=== PATIENT | male | born 1965 | race African-American/Black ===

== ENCOUNTER 2023-12-30 11:24 | Outpatient (AMB) | payer BC, SELFPAY ==
--- NOTE | 2023-12-30 11:33 | HO.NEPHOV_ITS ---
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 He has history of aortic dissection needing EVAR( July 2022). He also had stroke with if NANETTE a chest pain resolved. He has longstanding hypertension and is known to have hypertensive cardiomyopathy. He has not been on any NANETTE inhibitor or ARB for unknown reasons. He had a CT angiogram which also picked up 3.7 cm low- density lesion in the lower pole of left kidney. He has not seen urologist. He is known to have proteinuria over a gram but never had a renal biopsy .His blood pressure has been suboptimally controlled. He denies taking any drugs, excessive nonsteroidal anti-inflammatories or ajug-xdr-[id number] medications. He maintains good hydration. He does not have any chest pain, shortness of breath, proximal nocturnal dyspnea, orthopnea, worsening pedal edema, hematuria or orthostatic symptoms. His last serum creatinine was 2.59. 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 Anemia Expressive aphasia CVA (cerebral vascular accident) Aortic dissection Hyperaldosteronism Adrenal hyperplasia Surgical History Hx of repair of dissecting thoracic aortic aneurysm, Eyal type B Family History Mother Type 2 diabetes mellitus Hypertension Social History (Updated 12/30/23 @ 11:38 by Glendy Garcias MA) Alcohol intake: never Patient Tobacco Use Status: Never used Tobacco Review of Systems Const All systems reviewed & are unremarkable except as noted in HPI and below Physical Exam Vital Signs: Last Vital Signs Pulse 74 06/25/24 11:34 BP 148/90 H 12/30/23 11:34 Pulse Ox 98 12/30/23 11:34 Oxygen Delivery Method Room Air 12/30/23 11:34 BMI result Body Mass Index 25.5 Const General: comfortable and no acute distress Orientation/consciousness: patient oriented x3 HEENT Head: Yes normocephalic Mouth: Normal oral and palatal mucosa present Eyes EOM: EOMs intact bilaterally Neck Neck: Yes supple Resp Auscultation: clear to auscultation bilaterally Cardio Jugular venous distension: no JVD Rate: regular rate GI Palpation (GI): Soft to palpation Auscultation: normal bowel sounds General: Yes no CVA tenderness Back/Spine/Pelvis Back: no CVA tenderness Skin General skin exam: no rashes or lesions noted Neuro General: patient oriented x3 and moves all extremities Results Reviewed Nephrology Results: No Data to Display Assessment & Plan Assessment & Plan (1) CKD stage 4 secondary to hypertension: Code(s): I12.9 - Hypertensive chronic kidney disease with stage 1 through stage 4 chronic kidney disease, or unspecified chronic kidney disease; N18.4 - Chronic kidney disease, stage 4 (severe) Category: Medical (2) Hypertension: Code(s): I10 - Essential (primary) hypertension Category: Medical Qualifiers: Hypertension type: renovascular hypertension Qualified Code(s): I15.0 - Renovascular hypertension (3) Proteinuria: Code(s): R80.9 - Proteinuria, unspecified Category: Medical Qualifiers: Proteinuria type: other Qualified Code(s): R80.8 - Other proteinuria (4) Renal cyst: Code(s): N28.1 - Cyst of kidney, acquired Category: Medical Plan Jesi has CKD likely from vascular disease. He had aortic dissection as well as stroke. His blood pressure is not very well controlled. I increased his carvedilol to 37.5 mg twice daily. He is known to have proteinuria over a gram. I ordered workup including imaging studies. He likely will need renal biopsy. I encouraged him to avoid nonsteroidal anti-inflammatories and maintain good hydration. Time spent reviewing or his data, previous notes and consultations, patient encounter and documentation included 61 minutes. Answered all questions. Follow-up appointment given. Orders: Orders Calcium Today I10 - Essential (primary) hypertension, I12.9 - Hypertensive chronic kidney disease with stage 1 through stage 4 chronic kidney disease, or unspecified chronic kidney disease, N18.4 - Chronic kidney disease, stage 4 (severe) Complete Blood Count Auto Diff Today I10 - Essential (primary) hypertension, I12.9 - Hypertensive chronic kidney disease with stage 1 through stage 4 chronic kidney disease, or unspecified chronic kidney disease, N18.4 - Chronic kidney disease, stage 4 (severe) Prothrombin Time INR Today I10 - Essential (primary) hypertension, I12.9 - Hypertensive chronic kidney disease with stage 1 through stage 4 chronic kidney disease, or unspecified chronic kidney disease, N18.4 - Chronic kidney disease, stage 4 (severe) Immunofixation, Random Urine Today I10 - Essential (primary) hypertension, I12.9 - Hypertensive chronic kidney disease with stage 1 through stage 4 chronic kidney disease, or unspecified chronic kidney disease, N18.4 - Chronic kidney disease, stage 4 (severe) Vitamin D 25-OH Total Today I10 - Essential (primary) hypertension, I12.9 - Hypertensive chronic kidney disease with stage 1 through stage 4 chronic kidney disease, or unspecified chronic kidney disease, N18.4 - Chronic kidney disease, stage 4 (severe) US renal BI Today I10 - Essential (primary) hypertension, I12.9 - Hypertensive chronic kidney disease with stage 1 through stage 4 chronic kidney disease, or unspecified chronic kidney disease, N18.4 - Chronic kidney disease, stage 4 (severe) Creatinine Today I10 - Essential (primary) hypertension, I12.9 - Hypertensive chronic kidney disease with stage 1 through stage 4 chronic kidney disease, or unspecified chronic kidney disease, N18.4 - Chronic kidney disease, stage 4 (severe) Blood Urea Nitrogen Today I10 - Essential (primary) hypertension, I12.9 - Hypertensive chronic kidney disease with stage 1 through stage 4 chronic kidney disease, or unspecified chronic kidney disease, N18.4 - Chronic kidney disease, stage 4 (severe) Electrolytes Today I10 - Essential (primary) hypertension, I12.9 - Hypertensive chronic kidney disease with stage 1 through stage 4 chronic kidney disease, or unspecified chronic kidney disease, N18.4 - Chronic kidney disease, stage 4 (severe) Immunofixation Pnl, Serum Today I10 - Essential (primary) hypertension, I12.9 - Hypertensive chronic kidney disease with stage 1 through stage 4 chronic kidney disease, or unspecified chronic kidney disease, N18.4 - Chronic kidney disease, stage 4 (severe) Parathyroid Hormone Intact Today I10 - Essential (primary) hypertension, I12.9 - Hypertensive chronic kidney disease with stage 1 through stage 4 chronic kidney disease, or unspecified chronic kidney disease, N18.4 - Chronic kidney disease, stage 4 (severe) US renal doppler Today I10 - Essential (primary) hypertension, I12.9 - Hypertensive chronic kidney disease with stage 1 through stage 4 chronic kidney disease, or unspecified chronic kidney disease, N18.4 - Chronic kidney disease, stage 4 (severe) Hemoglobin A1c Today I10 - Essential (primary) hypertension, I12.9 - Hypertensive chronic kidney disease with stage 1 through stage 4 chronic kidney disease, or unspecified chronic kidney disease, N18.4 - Chronic kidney disease, stage 4 (severe) Coding Level of Care Code New Pt Level 5 (57684) Diagnoses CKD stage 4 secondary to hypertension I12.9; N18.4 Renovascular hypertension I15.0 Hypertension type: renovascular hypertension Other proteinuria R80.8 Proteinuria type: other Renal cyst N28.1
[2023-12-30 11:34] VITALS: BP 148/90; PULSE 74; O2SAT 98; BMI 25.5
== END 2023-12-30 12:09 | disposition home or self-care (01) ==
PROVIDERS: PCP Internal Medicine; Referring Provider Internal Medicine; Visit Provider Internal Medicine Nephrology
DX: I12.9 Hypertensive chronic kidney disease with stage 1 through stage 4 chronic kidney disease, or unspecified chronic kidney disease (principal); N18.4 Chronic kidney disease, stage 4 (severe); I15.0 Renovascular hypertension; R80.8 Other proteinuria; N28.1 Cyst of kidney, acquired
CPT/HCPCS: 99205; 99417

== ENCOUNTER → 2023-12-30 11:24 | Outpatient (BNVA) | payer BC, SELFPAY | PROVIDERS: PCP Internal Medicine; Referring Provider Internal Medicine; Visit Provider Internal Medicine Nephrology ==

== ENCOUNTER 2024-01-29 11:00 | Outpatient (AMB) | payer BC, SELFPAY ==
--- NOTE | 2024-01-29 11:17 | HO.NEPHOV_ITS ---
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 He has history of aortic dissection needing EVAR( July 2022)( Dr Carr). He also had stroke with if NANETTE a chest pain resolved. He has longstanding hypertension and is known to have hypertensive cardiomyopathy. He has not been on any NANETTE inhibitor or ARB for unknown reasons. He had a CT angiogram which also picked up 3.7 cm low-density lesion in the lower pole of left kidney. He has not seen urologist. He is known to have proteinuria over a gram but never had a renal biopsy .His blood pressure has been optimally controlled. He denies taking any drugs, excessive nonsteroidal anti-inflammatories or [id number]-[id number] medications. He maintains good hydration. He does not have any chest pain, shortness of breath, proximal nocturnal dyspnea, orthopnea, worsening pedal edema, hematuria or orthostatic symptoms. 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 Anemia Expressive aphasia CVA (cerebral vascular accident) Aortic dissection Hyperaldosteronism Adrenal hyperplasia Surgical History Hx of repair of dissecting thoracic aortic aneurysm, Eyal type B Family History Mother Type 2 diabetes mellitus Hypertension Social History Alcohol intake: never Patient Tobacco Use Status: Never used Tobacco Physical Exam Vital Signs: Last Vital Signs Pulse 74 01/29/24 11:19 BP 110/80 01/29/24 11:19 Pulse Ox 99 01/29/24 11:19 Oxygen Delivery Method Room Air 01/29/24 11:19 BMI result Body Mass Index 25.3 Results Reviewed Nephrology Results: No Data to Display Assessment & Plan Assessment & Plan (1) CKD stage 4 secondary to hypertension: Code(s): I12.9 - Hypertensive chronic kidney disease with stage 1 through stage 4 chronic kidney disease, or unspecified chronic kidney disease; N18.4 - Chronic kidney disease, stage 4 (severe) Category: Medical (2) Hypertension: Code(s): I10 - Essential (primary) hypertension Category: Medical Qualifiers: Hypertension type: renovascular hypertension Qualified Code(s): I15.0 - Renovascular hypertension (3) Proteinuria: Code(s): R80.9 - Proteinuria, unspecified Category: Medical Qualifiers: Proteinuria type: other Qualified Code(s): R80.8 - Other proteinuria (4) Renal cyst: Code(s): N28.1 - Cyst of kidney, acquired Category: Medical Plan Amrit has CKD likely from vascular disease. He had aortic dissection as well as stroke. His blood pressure is very well controlled on current medications . He is known to have proteinuria over a gram. He needs F/U renal USS. He may renal biopsy. I encouraged him to avoid nonsteroidal anti-inflammatories and maintain good hydration. Answered all questions. Follow-up appointment given Orders: Orders Blood Urea Nitrogen 2 Months I12.9 - Hypertensive chronic kidney disease with stage 1 through stage 4 chronic kidney disease, or unspecified chronic kidney disease, I15.0 - Renovascular hypertension, N18.4 - Chronic kidney disease, stage 4 (severe) Electrolytes 2 Months I12.9 - Hypertensive chronic kidney disease with stage 1 through stage 4 chronic kidney disease, or unspecified chronic kidney disease, I15.0 - Renovascular hypertension, N18.4 - Chronic kidney disease, stage 4 (severe) Creatinine 2 Months I12.9 - Hypertensive chronic kidney disease with stage 1 through stage 4 chronic kidney disease, or unspecified chronic kidney disease, I15.0 - Renovascular hypertension, N18.4 - Chronic kidney disease, stage 4 (severe) Coding Level of Care Code Est Pt Level 4 (53707) Diagnoses CKD stage 4 secondary to hypertension I12.9; N18.4 Renovascular hypertension I15.0 Hypertension type: renovascular hypertension Other proteinuria R80.8 Proteinuria type: other Renal cyst N28.1
[2024-01-29 11:19] VITALS: BP 110/80; PULSE 74; O2SAT 99; BMI 25.3
== END 2024-01-29 11:39 | disposition home or self-care (01) ==
PROVIDERS: PCP Internal Medicine; Visit Provider Internal Medicine Nephrology
DX: I12.9 Hypertensive chronic kidney disease with stage 1 through stage 4 chronic kidney disease, or unspecified chronic kidney disease (principal); N18.4 Chronic kidney disease, stage 4 (severe); R80.8 Other proteinuria; N28.1 Cyst of kidney, acquired
CPT/HCPCS: 99214

== ENCOUNTER → 2024-01-29 11:00 | Outpatient (BNVA) | payer BC, SELFPAY | PROVIDERS: PCP Internal Medicine; Visit Provider Internal Medicine Nephrology ==

== ENCOUNTER 2024-01-29 11:02 | Outpatient (REF) | payer BC, SELFPAY ==
[2024-01-29 17:32] LABS: MANUAL DIFF FLAG NO
[2024-01-29 17:34] LABS: Basophils Absolute Auto 0.1 X10*3/uL (0.0-0.2); Eosinophils Absolute Auto 0.2 X10*3/uL (0.0-0.4); Eosinophils Percent Auto 3.4 % (0-4); Hematocrit 36.8 % (42.0-52.0); Imm Gran Abs Auto 0.02 X10*3/uL (0.00-0.03); Imm Gran Pct Auto 0.3 % (0.0-0.4); Lymphocytes Absolute Auto 1.9 X10*3/uL (1.2-4.9); Lymphocytes Percent Auto 28.4 % (20-40); Mean Corpuscular HGB Conc 32.6 g/dl (31.0-36.0); Mean Corpuscular Hemoglobin 28.6 pg (27.0-33.0); Mean Corpuscular Volume 87.6 fL (80.0-98.0); Mean Platelet Volume 9.8 fL (9.4-12.4); Monocytes Absolute Auto 0.4 X10*3/uL (0.1-1.2); Monocytes Percent Auto 5.6 % (2-11); Neutrophils Absolute Auto 4.2 x10*3/uL (2.0-8.3); Neutrophils Percent Auto 61.3 % (45-73); Platelet Count 269 X10*3/uL (160-400); Red Cell Distribution Width 13.4 % (11.0-16.0); White Blood Count 6.8 X10*3/uL (4.8-10.8)
[2024-01-29 17:38] LABS: Prothrombin Time 11.8 SEC (11.1-13.3)
[2024-01-29 17:57] LABS: Anion Gap 14 (12-20); Blood Urea Nitrogen 32 mg/dL (9-16); Calcium 9.5 mg/dL (8.4-10.2); Carbon Dioxide 26 mmol/L (22-29); Chloride 106 mmol/L (96-108); Estimated Glomerular Filt Rate 19; Potassium 5.1 mmol/L (3.3-5.1); Sodium 141 mmol/L (135-145)
[2024-01-29 18:16] LABS: Vitamin D 25-OH Total 34.6 ng/mL (>30)
[2024-01-30 05:35] LABS: Parathyroid Hormone Intact 193.4 pg/mL (8.7-77.1)
[2024-01-30 07:47] LABS: Estimated Average Glucose 120 mg/dL; Hemoglobin A1c % 5.8 % (<6.0)
[2024-02-04 13:33] LABS: IgA 360 mg/dL (47-310); IgG 1437 mg/dL (600-1640); IgM 52 mg/dL (50-300)
== END 2024-01-29 11:03 | disposition home or self-care (01) ==
LOC: HO.HKASLDS 11:02
PROVIDERS: Visit Provider Internal Medicine Nephrology
DX: I12.9 Hypertensive chronic kidney disease with stage 1 through stage 4 chronic kidney disease, or unspecified chronic kidney disease (principal); N18.4 Chronic kidney disease, stage 4 (severe); I10 Essential (primary) hypertension; Z13.1 Encounter for screening for diabetes mellitus
CPT/HCPCS: 80051; 82306; 82310; 82565; 82784; 83036; 83970; 84520; 85025; 85610; 86334; 86335

== ENCOUNTER 2024-03-23 10:30 | Outpatient (REF) | payer BC, SELFPAY ==
[2024-03-23 17:51] LABS: Anion Gap 13 (12-20); Blood Urea Nitrogen 32 mg/dL (9-16); Carbon Dioxide 29 mmol/L (22-29); Chloride 104 mmol/L (96-108); Estimated Glomerular Filt Rate 17; Sodium 141 mmol/L (135-145)
== END 2024-03-23 10:31 | disposition home or self-care (01) ==
LOC: HO.HKASLDS 10:30
PROVIDERS: Visit Provider Internal Medicine Nephrology
DX: I12.9 Hypertensive chronic kidney disease with stage 1 through stage 4 chronic kidney disease, or unspecified chronic kidney disease (principal); N18.4 Chronic kidney disease, stage 4 (severe)
CPT/HCPCS: 36415; 80051; 82565; 84520

== ENCOUNTER 2024-05-06 10:56 | Outpatient (AMB) | payer BC, SELFPAY ==
[2024-05-06 11:01] VITALS: BP 130/84; PULSE 76; O2SAT 98; BMI 26.1
--- NOTE | 2024-05-06 11:01 | HO.NEPHOV_ITS ---
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 He has history of aortic dissection needing EVAR( July 2022)( Dr Carr). He also had stroke. He has longstanding hypertension and is known to have hypertensive cardiomyopathy. He has not been on any NANETTE inhibitor or ARB for unknown reasons. He had a CT angiogram which also picked up 3.7 cm low-density lesion in the lower pole of left kidney. He has not seen urologist. He is known to have proteinuria over a gram but never had a renal biopsy .His blood pressure has been optimally controlled. He denies taking any drugs, excessive nonsteroidal anti- inflammatories or myvp-jih-wzmsuxp medications. He maintains good hydration. He does not have any chest pain, shortness of breath, proximal nocturnal dyspnea, orthopnea, worsening pedal edema, hematuria or orthostatic symptoms. 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 Anemia Expressive aphasia CVA (cerebral vascular accident) Aortic dissection Hyperaldosteronism Adrenal hyperplasia Surgical History Hx of repair of dissecting thoracic aortic aneurysm, Accident type B Family History Mother Type 2 diabetes mellitus Hypertension Social History Alcohol intake: never Patient Tobacco Use Status: Never used Tobacco Review of Systems Const All systems reviewed & are unremarkable except as noted in HPI and below Physical Exam Vital Signs: Last Vital Signs Pulse 76 05/06/24 11:01 BP 130/84 05/06/24 11:01 Pulse Ox 98 05/06/24 11:01 Oxygen Delivery Method Room Air 05/06/24 11:01 BMI result Body Mass Index 26.1 Const General: comfortable and no acute distress Orientation/consciousness: patient oriented x3 HEENT Head: Yes normocephalic Mouth: Normal oral and palatal mucosa present Eyes EOM: EOMs intact bilaterally Neck Neck: Yes supple Resp Auscultation: clear to auscultation bilaterally Cardio Jugular venous distension: no JVD Rate: regular rate GI Palpation (GI): Soft to palpation Auscultation: normal bowel sounds General: Yes no CVA tenderness Back/Spine/Pelvis Back: no CVA tenderness Skin General skin exam: no rashes or lesions noted Neuro General: patient oriented x3 and moves all extremities Extrem General: Yes no pedal edema Results Reviewed Nephrology Results: Hgb 12.0 g/dl (14.0-18.0) L 01/29/24 WBC 6.8 X10*3/uL (4.8-10.8) 01/29/24 Plt Count 269 X10*3/uL (160-400) 01/29/24 Sodium 141 mmol/L (135-145) 03/23/24 Potassium 5.0 mmol/L (3.3-5.1) 03/23/24 Chloride 104 mmol/L (96-108) 03/23/24 Carbon Dioxide 29 mmol/L (22-29) 03/23/24 BUN 32 mg/dL (9-16) H 03/23/24 Creatinine 3.64 mg/dL (0.5-1.4) H 03/23/24 Calcium 9.5 mg/dL (8.4-10.2) 01/29/24 PTH Intact 193.4 pg/mL (8.7-77.1) H 01/29/24 Assessment & Plan Assessment & Plan (1) CKD stage 4 secondary to hypertension: Code(s): I12.9 - Hypertensive chronic kidney disease with stage 1 through stage 4 chronic kidney disease, or unspecified chronic kidney disease; N18.4 - Chronic kidney disease, stage 4 (severe) Category: Medical (2) Hypertension: Code(s): I10 - Essential (primary) hypertension Category: Medical Qualifiers: Hypertension type: renovascular hypertension Qualified Code(s): I15.0 - Renovascular hypertension (3) Renal cyst: Code(s): N28.1 - Cyst of kidney, acquired Category: Medical Plan Amrit has CKD likely from vascular disease. He had aortic dissection as well as stroke. His blood pressure is very well controlled on current medications . He is known to have proteinuria over a gram. He needs F/U renal USS. He may renal biopsy. I encouraged him to avoid nonsteroidal anti-inflammatories and maintain good hydration. I plan to initiate him on SGLT2 i at the next visit. Answered all questions. Follow-up appointment given Orders: Orders Creatinine 1 Week I12.9 - Hypertensive chronic kidney disease with stage 1 through stage 4 chronic kidney disease, or unspecified chronic kidney disease, N18.4 - Chronic kidney disease, stage 4 (severe) Blood Urea Nitrogen 3 Months I12.9 - Hypertensive chronic kidney disease with stage 1 through stage 4 chronic kidney disease, or unspecified chronic kidney disease, I15.0 - Renovascular hypertension, N18.4 - Chronic kidney disease, stage 4 (severe) Vitamin D 25-OH Total 3 Months I12.9 - Hypertensive chronic kidney disease with stage 1 through stage 4 chronic kidney disease, or unspecified chronic kidney disease, I15.0 - Renovascular hypertension, N18.4 - Chronic kidney disease, stage 4 (severe) Blood Urea Nitrogen 1 Week I12.9 - Hypertensive chronic kidney disease with stage 1 through stage 4 chronic kidney disease, or unspecified chronic kidney disease, N18.4 - Chronic kidney disease, stage 4 (severe) Electrolytes 1 Week I12.9 - Hypertensive chronic kidney disease with stage 1 through stage 4 chronic kidney disease, or unspecified chronic kidney disease, N18.4 - Chronic kidney disease, stage 4 (severe) Creatinine 3 Months I12.9 - Hypertensive chronic kidney disease with stage 1 through stage 4 chronic kidney disease, or unspecified chronic kidney disease, I15.0 - Renovascular hypertension, N18.4 - Chronic kidney disease, stage 4 (severe) Electrolytes 3 Months I12.9 - Hypertensive chronic kidney disease with stage 1 through stage 4 chronic kidney disease, or unspecified chronic kidney disease, I15.0 - Renovascular hypertension, N18.4 - Chronic kidney disease, stage 4 (severe) Coding Level of Care Code Est Pt Level 4 (93065) Diagnoses CKD stage 4 secondary to hypertension I12.9; N18.4 Renovascular hypertension I15.0 Hypertension type: renovascular hypertension Renal cyst N28.1
== END 2024-05-06 11:27 | disposition home or self-care (01) ==
LOC: HO.HKAS 10:56
PROVIDERS: PCP Internal Medicine; Visit Provider Internal Medicine Nephrology
DX: I12.9 Hypertensive chronic kidney disease with stage 1 through stage 4 chronic kidney disease, or unspecified chronic kidney disease (principal); N18.4 Chronic kidney disease, stage 4 (severe); N28.1 Cyst of kidney, acquired
CPT/HCPCS: 99214

== ENCOUNTER → 2024-05-06 10:56 | Outpatient (BNVA) | payer BC, SELFPAY | PROVIDERS: PCP Internal Medicine; Visit Provider Internal Medicine Nephrology ==

== ENCOUNTER 2024-09-16 10:28 | Outpatient (AMB) | payer BC, SELFPAY ==
--- NOTE | 2024-09-16 10:39 | HO.NEPHOV_ITS ---
Vital Signs 09/16/24 10:40 Height 5 ft 8 in Weight 177 lb 8 oz BMI 27.0 BP 130/70 Blood Pressure Location Rt brachial Position Sitting Pulse 73 Pulse Source Pulse Oximeter Pulse Oximetry (%) 99 Oxygen Delivery Method Room Air Intake Visit Reasons: 3 mo f/u-LVM Panelboard Tank Pumper Required: No Accompanied by: Self / Same As Patient Allergies amlodipine [From Lotrel] Allergy (Verified 09/16/24 10:40) Numbness benazepril [From Lotrel] Allergy (Verified 09/16/24 10:40) Numbness HPI Comments Details: 58-year-old gentleman was seen in follow up for management of his chronic kidney disease and hypertension. He has history of aortic dissection needing EVAR( July 2022)( Dr Carr). He also had stroke. He has longstanding hypertension and is known to have hypertensive cardiomyopathy. He has not been on any NANETTE inhibitor or ARB for unknown reasons. He had a CT angiogram which also picked up 3.7 cm low-density lesion in the lower pole of left kidney. He has not seen urologist. He is known to have proteinuria over a gram but never had a renal biopsy .His blood pressure has been optimally controlled. He denies taking any drugs, excessive nonsteroidal anti-inflammatories or hnge-gda-lqmiejo medications. He maintains good hydration. He does not have any chest pain, shortness of breath, proximal nocturnal dyspnea, orthopnea, worsening pedal edema, hematuria or orthostatic symptoms. 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 Anemia Expressive aphasia CVA (cerebral vascular accident) Aortic dissection Hyperaldosteronism Adrenal hyperplasia Surgical History Hx of repair of dissecting thoracic aortic aneurysm, Sullivan type B Family History Mother Type 2 diabetes mellitus Hypertension Social History Alcohol intake: never Patient Tobacco Use Status: Never used Tobacco Review of Systems Const All systems reviewed & are unremarkable except as noted in HPI and below Physical Exam Vital Signs: Last Vital Signs Pulse 73 09/16/24 10:40 BP 130/70 09/16/24 10:40 Pulse Ox 99 09/16/24 10:40 Oxygen Delivery Method Room Air 09/16/24 10:40 BMI result Body Mass Index 27.0 Const General: comfortable and no acute distress Orientation/consciousness: patient oriented x3 HEENT Head: Yes normocephalic Mouth: Normal oral and palatal mucosa present Eyes EOM: EOMs intact bilaterally Neck Neck: Yes supple Resp Auscultation: clear to auscultation bilaterally Cardio Jugular venous distension: no JVD Rate: regular rate GI Palpation (GI): Soft to palpation Auscultation: normal bowel sounds Skin General skin exam: no rashes or lesions noted Neuro General: patient oriented x3 and moves all extremities Extrem General: Yes no pedal edema Results Reviewed Nephrology Results: Hgb 12.0 g/dl (14.0-18.0) L 01/29/24 WBC 6.8 X10*3/uL (4.8-10.8) 01/29/24 Plt Count 269 X10*3/uL (160-400) 01/29/24 Sodium 141 mmol/L (135-145) 03/23/24 Potassium 5.0 mmol/L (3.3-5.1) 03/23/24 Chloride 104 mmol/L (96-108) 03/23/24 Carbon Dioxide 29 mmol/L (22-29) 03/23/24 BUN 32 mg/dL (9-16) H 03/23/24 Creatinine 3.64 mg/dL (0.5-1.4) H 03/23/24 Calcium 9.5 mg/dL (8.4-10.2) 01/29/24 PTH Intact 193.4 pg/mL (8.7-77.1) H 01/29/24 Assessment & Plan Assessment & Plan (1) Renovascular hypertension: Code(s): I15.0 - Renovascular hypertension Category: Medical (2) Renal cyst: Code(s): N28.1 - Cyst of kidney, acquired Category: Medical (3) Proteinuria: Code(s): R80.9 - Proteinuria, unspecified Category: Medical Qualifiers: Proteinuria type: other Qualified Code(s): R80.8 - Other proteinuria (4) CKD stage 4 secondary to hypertension: Code(s): I12.9 - Hypertensive chronic kidney disease with stage 1 through stage 4 chronic kidney disease, or unspecified chronic kidney disease; N18.4 - Chronic kidney disease, stage 4 (severe) Category: Medical (5) Hypertension: Code(s): I10 - Essential (primary) hypertension Category: Medical Qualifiers: Hypertension type: renovascular hypertension Qualified Code(s): I15.0 - Renovascular hypertension (6) Secondary hyperparathyroidism (of renal origin): Code(s): N25.81 - Secondary hyperparathyroidism of renal origin Category: Medical (7) Vitamin D deficiency: Code(s): E55.9 - Vitamin D deficiency, unspecified Category: Medical Plan Amrit has CKD likely from vascular disease. He had aortic dissection as well as stroke. His blood pressure is very well controlled on current medications . He is known to have proteinuria over a gram. I started him on Vitamin D 1000 Units a day. I encouraged him to avoid nonsteroidal anti-inflammatories and maintain good hydration. He is a great candidate for SGLT2 i . Answered all questions. Follow-up appointment given Orders: Orders Creatinine 3 Months E55.9 - Vitamin D deficiency, unspecified, I12.9 - Hypertensive chronic kidney disease with stage 1 through stage 4 chronic kidney disease, or unspecified chronic kidney disease, I15.0 - Renovascular hypertension, N18.4 - Chronic kidney disease, stage 4 (severe), N25.81 - Secondary hyperparathyroidism of renal origin, N28.1 - Cyst of kidney, acquired, R80.8 - Other proteinuria Blood Urea Nitrogen 3 Months E55.9 - Vitamin D deficiency, unspecified, I12.9 - Hypertensive chronic kidney disease with stage 1 through stage 4 chronic kidney disease, or unspecified chronic kidney disease, I15.0 - Renovascular hypertension, N18.4 - Chronic kidney disease, stage 4 (severe), N25.81 - Secondary hyperparathyroidism of renal origin, N28.1 - Cyst of kidney, acquired, R80.8 - Other proteinuria Electrolytes 3 Months E55.9 - Vitamin D deficiency, unspecified, I12.9 - Hypertensive chronic kidney disease with stage 1 through stage 4 chronic kidney disease, or unspecified chronic kidney disease, I15.0 - Renovascular hypertension, N18.4 - Chronic kidney disease, stage 4 (severe), N25.81 - Secondary hyperparathyroidism of renal origin, N28.1 - Cyst of kidney, acquired, R80.8 - Other proteinuria Calcium 3 Months E55.9 - Vitamin D deficiency, unspecified, I12.9 - Hypertensive chronic kidney disease with stage 1 through stage 4 chronic kidney disease, or unspecified chronic kidney disease, I15.0 - Renovascular hypertension, N18.4 - Chronic kidney disease, stage 4 (severe), N25.81 - Secondary hyperparathyroidism of renal origin, N28.1 - Cyst of kidney, acquired, R80.8 - Other proteinuria Phosphorus 3 Months E55.9 - Vitamin D deficiency, unspecified, I12.9 - Hypertensive chronic kidney disease with stage 1 through stage 4 chronic kidney disease, or unspecified chronic kidney disease, I15.0 - Renovascular hypertension, N18.4 - Chronic kidney disease, stage 4 (severe), N25.81 - Secondary hyperparathyroidism of renal origin, N28.1 - Cyst of kidney, acquired, R80.8 - Other proteinuria Medications: New cholecalciferol (vitamin D3) 25 mcg PO DAILY 90 caps 4RF Coding Level of Care Code Est Pt Level 4 (83645) Diagnoses Renovascular hypertension I15.0 Renal cyst N28.1 Other proteinuria R80.8 Proteinuria type: other CKD stage 4 secondary to hypertension I12.9; N18.4 Renovascular hypertension I15.0 Hypertension type: renovascular hypertension Secondary hyperparathyroidism (of renal origin) N25.81 Vitamin D deficiency E55.9
[2024-09-16 10:40] VITALS: BP 130/70; PULSE 73; O2SAT 99; BMI 27.0
--- OUTSIDE RECORDS SUMMARY | 2024-09-16 13:08 | XMS_ITS | Clinical Summary ---
Author Organization [facility] Address [address] [address] [place] [address] Phone Care Team Providers Care Full Stack Net Developer Name Role Phone Kamran Anderson Primary Care Provider [phone] Allergies Active Allergy Reactions Criticality Noted Date Comments Ferumoxytol High 12/14/2021 Severe hypotension and chest pain Medications cholecalciferol (VITAMIN D-3) 25 MCG (1000 UT) capsule Take 2 capsules by mouth 1 (one) time each day Active Levoxyl 137 MCG tablet Take 137 mcg by mouth 1 (one) time each day 1 Active Aspirin Low Dose 81 MG EC tablet Take 81 mg by mouth 1 (one) time each day 2 Active ferrous sulfate 325 (65 Fe) MG tablet Take 325 mg by mouth 1 (one) time each day with breakfast Active atorvastatin (LIPITOR) 40 MG tablet Take 40 mg by mouth 1 (one) time each day Active carvedilol (COREG) 25 MG tablet Take 25 mg by mouth in the morning and 25 mg in the evening. Take with meals. Active amLODIPine (NORVASC) 10 MG tablet Take 10 mg by mouth 1 (one) time each day Active losartan (Cozaar) 25 MG tabletIndicatio ns:Chronic kidney disease, stage 4 (severe) (HCC),Hypertens ion,Proteinuria , not otherwise specified Take 1 tablet (25 mg total) by mouth 1 (one) time each day 90 tablet 3 4 09/21/19 25 Active Active Problems Problem Noted Date Diagnosed Date Iron deficiency anemia 12/14/2021 Anemia in chronic kidney disease 10/18/2021 Stage 3b chronic kidney disease 10/18/2021 Hyperparathyroidism due to renal insufficiency 0 10/23/2020 Hypertensive renal disease 10/23/2020 Hypokalemia 10/23/2020 Secondary hypertension 10/23/2020 Family History Medical History Relation Comments Diabetes Mother type 2 Hypertension Mother Relation Status Comments Father Alive Mother Alive Social History Tobacco Use Types Packs/Day Years Used Date Smoking Tobacco: Never Smokeless Tobacco: Never Tobacco Cessation:Counseling Given: Not Answered Alcohol Use Standard Drinks/Week Comments No 0 (1 standard drink = 0.6 oz pur e alcohol) Sex and Gender Information Value Date Recorded Sex Assigned at Not on file Legal Sex Male 5:15 PM EST Gender Identity Not on file Sexual Orientation Not on file Last Filed Vital Signs Vital Sign Reading Time Taken Comments Blood Pressure 120/80 09/18/2023 1:35 PM EDT Pulse 71 09/18/2023 1:35 PM EDT Temperature - - Respiratory Rate - - Oxygen Saturation 98% 07/28/2019 12:00 PM EST Inhaled Oxygen Concentration - - Weight 75.3 kg (166 lb) 09/18/2023 1:35 PM EDT Height 172.7 cm (5' 8 ) 11/11/2019 12:00 PM EDT Body Mass Index 25.24 11/11/2019 12:00 PM EDT Plan of Treatment Health Maintenance Due Date Last Done Comments Pneumococcal Vaccine: Pediat rics (0 to 5 Years) and At-Risk Patients (6 to 64 Years) (1 of 2 - PCV) 1971 Hepatitis B Vaccine (1 of 3 - 19+ 3-dose series) 06/12 Colorectal Cancer Screening: Annual FOBT 2014 Colorectal Cancer Screening: Colonoscopy 2014 Colorectal Cancer Screening: Sigmoidoscopy 2014 Influenza Vaccine (#1) [address] [address] Care Teams Full Stack Net Developer Relationship Specialty Start Date End Date Kamran Anderson [address] [place] [id number] PCP - General Internal Medicine 02/07/21
--- OUTSIDE RECORDS SUMMARY | 2024-09-16 13:08 | XMS_ITS | Encounter Summary ---
Author Organization [facility], Address [address] [place] [address] Phone Care Team Providers Care Spout Liner Helper Name Role Phone Kamran Anderson Primary Care Provider [phone] Encounter Details Date Type Department Care Team (Late st Contact Info) Description 10/30/2021 Documentation Only [facility], [address] [place] [phone] Chandrakant Darden MD [address] [place] [phone] Social History Tobacco Use Types Packs/Day Years Used Date Smoking Tobacco: Never Alcohol Use Standard Drinks/Week Comments No 0 (1 standard drink = 0.6 oz pur e alcohol) Sex and Gender Information Value Date Recorded Sex Assigned at Not on file Legal Sex Male 5:15 PM EST Gender Identity Not on file Sexual Orientation Not on file documented as of this encounter Plan of Treatment Not on file documented as of this encounter Visit Diagnoses Not on filedocumented in this encounter Care Teams Spout Liner Helper Relationship Specialty Start Date End Date Kamran Anderson [address] [place] [id number] PCP - General Internal Medicine 02/07/21 documented as of this encounter
--- OUTSIDE RECORDS SUMMARY | 2024-09-16 13:08 | XMS_ITS | Clinical Summary ---
Author Organization [facility] Address [address] [place] [address] Care Team Providers Care Facing Cutting Machine Operator Name Role Phone Kamran Cabello MD Primary Care Provider [phone] Allergies No known active allergies Medications Medication Sig Dispensed Refills Start Date End Date Status carvedilol (COREG) 25 MG tablet Take by mouth 2 (two) times a day with meals. 0 Active Niacin ER (VITAMIN B3) 250 MG CR capsule Take by mouth. 0 Act pearl ferrous sulfate 325 (65 FE) MG tablet Take 1 tablet (325 mg total) by mouth 3 (three) times a day with meals. 0 Active amLODIPine (NORVASC) tablet 10 mg Take 1 tablet (10 mg total) by mouth daily. 0 Active atorvastatin (LIPITOR) tablet 40 mg Take 1 tablet (40 mg total) by mouth daily. 0 Active levothyroxine (SYNTHROID) tablet 137 mcg Take 1 tablet (137 mcg total) by mouth every morning on an empty stomach. 0 Active Active Problems No known active problems Social History Tobacco Use Types Packs/Day Years Used Date Smoking Tobacco: Never Smokeless Tobacco: Never Tobacco Cessation:Counseling Given: Not Answered Alcohol Use Standard Drinks/Week Comments Not Currently 0 (1 standard drink = 0.6 oz pur e alcohol) Sex and Gender Information Value Date Recorded Sex Assigned at Not on file Gender Identity Not on file Sexual Orientation Not on file Job Start Date Occupation Industry Not on file Not on file Not on file Last Filed Vital Signs Vital Sign Reading Time Taken Comments Blood Pressure 153/93 04/12/2024 10:54 AM EDT Pulse 76 04/12/2024 10:54 AM EDT Temperature 37.1 ??C (98.8 ??F) 04/12/2024 10:54 AM E DT Respiratory Rate - - Oxygen Saturation 100% 04/12/2024 10:54 AM EDT Inhaled Oxygen Concentration - - Weight 76.2 kg (168 lb) 04/12/2024 10:54 AM EDT Height 172.7 cm (5' 8 ) 03/02/2024 10:20 AM EDT Body Mass Index 25.54 03/02/2024 10:20 AM EDT Plan of Treatment Health Maintenance Due Date Last Done Comments Hepatitis B Vaccines (1 of 3 - 3-dose series) 1965 Hepatitis C Screening 1965 COVID-19 Vaccine (#1) 1965 Depression Screening 1977 Preventative Health Evaluation 1983 DTap / Tdap / Td (1 - Tdap) 1984 Colon Cancer Screening (Colonoscopy) 2010 Shingrix-Zoster Vaccine (1 of 2) 2015 Influenza Vaccine (#1) 2024 Pneumococcal Vaccine Aged Out No long er eligible based on patient's age to complete this topic RSV Ped < 20 months Aged Out No longe r eligible based on patient's age to complete this topic Care Teams Facing Cutting Machine Operator Relationship Specialty Start Date End Date Kamran Cabello MD [address] [facility] [place] [place] [address] PCP - General Internal Medicine 02/05/24
--- OUTSIDE RECORDS SUMMARY | 2024-09-16 13:08 | XMS_ITS | Clinical Summary ---
Author Organization [place] [address] [facility] Address [address] [facility] [place] [address] Phone Care Team Providers Care Control Officer Manager Name Role Phone Kamran Cabello MD Primary Care Provider [phone] [phone] Allergies Active Allergy Reactions Criticality Noted Date Comments Amlodipine-Benazepril Numbness 12/19/2020 Ferumoxytol High 12/14/2021 Severe hypotension and chest pain Medications amLODIPine (NORVASC) 10 mg tablet Take 1 tablet (10 mg total) by mouth 1 (one) time each day. 4 Active atorvastatin (LIPITOR) 40 mg tablet Take 1 tablet (40 mg total) by mouth 1 (one) time each day. 3 Active ferrous sulfate 325 mg (65 mg elemental iron) tablet Take 1 tablet (325 mg total) by mouth 3 (three) times a day. Active levothyroxine (LevoxyL) 137 mcg tablet Take 1 tablet (137 mcg total) by mouth 1 (one) time each day. 1 Active aspirin 81 mg EC tablet Take 1 tablet (81 mg total) by mouth 1 (one) time each day. 90 tablet 1 5 Active carvediloL (COREG) 25 mg tablet Take 1 tablet (25 mg total) by mouth 2 (two) times a day. 90 tablet 1 5 Active aspirin 81 mg EC tablet Take 1 tablet (81 mg total) by mouth daily. 3 09/14/19 25 Discontinu ed(Reorder ) carvediloL (COREG) 25 mg tablet Take 1 tablet (25 mg total) by mouth 2 (two) times a day. 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 Padilla. s/p TEVAR CVA (cerebral vascular accident) 09/05/2021 Hyperaldosteronism 09/05/2021 Overview (09/15/2023): Bilateral gland hyperplasia, follows w/ renal Anemia 09/05/2021 Overview (09/15/2023): Acute blood loss anemia in the setting of aortic dissection repair. Assessment & Plan (06/18/2024 10:30 AM EST): He is compliant his supplements. He still does not want a colonoscopy. I have provided the FIT card. Referral to GI placed. Orders: Ambulatory referral to Gastroenterology; Future POC Fecal Immunochemical Testing (FIT) Screening or Diagnostic Expressive aphasia 09/05/2021 CKD stage 4 secondary to hypertension 05/12/2018 Assessment & Plan (06/18/2024 10:30 AM EST): Being monitored by nephrology. He will avoid NSAIDs. Hypertension 01/31/2017 Assessment & Plan (06/18/2024 10:30 AM EST): Patient will follow a low sodium diet. Continue regimen of amlodipine, carvedilol. Orders: Lipid panel with reflex to direct LDL; Future Postablative hypothyroidism 01/31/2017 Overview (09/15/2023): Followed by Dr. Botello (Rad Iodine ~1999) at [facility] Assessment & Plan (06/18/2024 10:30 AM EST): Continue current levothyroxine. Followed by endocrinology. Encounters Date Type Department Care Team Description 06/22/2024 Telephone Internal Medicine - [address] [place] [address] Princess Cobb [place] 06/18/2024 9:45 AM EST [facility] [place] [address] Kamran Cabello MD Hypertension, unspecified type (Primary Dx); Postablative hypothyroidism; CKD stage 4 secondary to hypertension (CMS/HCC); Iron deficiency anemia, unspecified iron deficiency anemia type; Screening for prostate cancer from Last 3 Months Surgical History Surgery Date Site/Laterality Comments OTHER SURGICAL HISTORY PROCEDURE: DENIES PREVIOUS SURGERY AAA REPAIR PROCEDURE:ABDOMINAL AORTIC ANEURYSM REPAIR Medical History Medical History Date Comments Other postablative hypothyroidism 01/31/2017 DX:Other postablative hypothyroidism Hypertension 01/31/2017 DX:Hypertension CKD (chronic kidney disease) stage 3, GFR 30-59 ml/min (CMS/HCC) 05/12/2018 DX:CKD (chronic kidney dise ase) stage 3, GFR 30-59 ml/min (HCC) Hyperaldosteronism (CMS/HCC) 09/05/2021 DX: Hyperaldosteronism (HCC) Aortic dissection (CMS/HCC) 09/05/2021 DX:A ortic dissection (HCC) CVA (cerebral vascular accid ent) (CMS/HCC) 09/05/2021 DX:CVA (cerebral vascular ac cident) (HCC) Expressive aphasia 09/05/2021 DX:Expressive aphasia Anemia 09/05/2021 DX:Anemia; COMME NT: Acute blood loss anemia in the setting of aortic dissection repair. Stroke (CMS/HCC) DX:Stroke (HCC) Hypertension DX:Hypertension Family History Medical History Relation Name Comments No Known Problems Father Other: T2DM, HTN Mother 05/2018 she lives with pt. Pt is an only child. Relation Name Status Comments Father Alive Mother Alive Social History Tobacco Use Types Packs/Day Years Used Date Smoking Tobacco: Never Smokeless Tobacco: Never Tobacco Cessation:Counseling Given: Not Answered Alcohol Use Standard Drinks/Week Comments Not Currently 0 (1 standard drink = 0.6 oz pur e alcohol) Sex and Gender Information Value Date Recorded Sex Assigned at Not on file Legal Sex Male 11:30 PM EST Gender Identity Not on file Sexual Orientation Not on file Obstetrics History Last Filed Vital Signs Vital Sign Reading Time Taken Comments Blood Pressure 132/80 06/18/2024 10:28 AM EST Pulse 78 06/18/2024 9:46 AM EST Temperature - - Respiratory Rate - - Oxygen Saturation - - Inhaled Oxygen Concentration - - Weight 78.6 kg (173 lb 3.2 oz) 06/18/2024 9:46 A M EST Height 172.7 cm (5' 8 ) 06/18/2024 9:46 AM EST Body Mass Index 26.33 06/18/2024 9:46 AM EST Plan of Treatment Upcoming Encounters Date Type Department Care Team (Late st Contact Info) Description 10/28/2024 9:45 AM EDT Office Visit Internal Medicine - [address] [phone] Kamran Cabello MD [address] [place] [id number] Health Maintenance Due Date Last Done Comments COVID-19 Vaccine (#1) 1970 DTaP,Tdap,and Td Vaccines (1 - Tdap) 1984 Hepatitis B Vaccines (1 of 3 - 19+ 3-dose series) 1984 Pneumococcal Vaccine: 50+ Years (1 of 1 - PCV) 2015 Zoster Vaccines (1 of 2) 2015 Depression Screening 06/15/2022 HIV Screening 06/15/2022 Social Influencers of Health Screening 06/15/2022 Hypertension/CHF/CAD Annual BMP Blood Test 12/08/2024 12/09/2023 Influenza Vaccine (#1) 2025 Postp oned from 03/07/2024 (Patient Refused) Colorectal Cancer Screening: Colonoscopy 12/19/2025 12/20/2015, 12/07/2015 Cholesterol Screening (Lipid Panel) 07/09/2029 07/09/2024, 01/08/2023 RSV Immunization Patients 60 + Years Old (1 - 1-dose 75+ series) 2040 Hepatitis C Screening Completed 12/19/2020 Colorectal Cancer Screening: Stool Based Tests (FOBT/FIT) Discontinued 06/22/2024 HIB Vaccines Aged Out No longer eligi ble based on patient's age to complete this topic HPV Vaccines Aged Out No longer eligi ble based on patient's age to complete this topic Hepatitis A Vaccines Aged Out No long er eligible based on patient's age to complete this topic IPV Vaccines Aged Out No longer eligi ble based on patient's age to complete this topic MMR Vaccines Aged Out No longer eligi ble based on patient's age to complete this topic Meningococcal ACWY Vaccine Aged Out N o longer eligible based on patient's age to complete this topic Meningococcal B Vacine Aged Out No lo nger eligible based on patient's age to complete this topic Pneumococcal Vaccine: Pediatrics (0 to 5 Years) and At-Risk Patients (6 to 64 Years) Aged Out No longer eligible b ased on patient's age to complete this topic RSV Immunization Patients Under 20 months Aged Out No longer eligible b ased on patient's age to complete this topic Varicella Vaccines Aged Out No longer eligible based on patient's age to complete this topic Procedures Procedure Name Priority Date/Time Associated Diagnosis Comments LIPID PANEL WITH REFLEX TO DIRECT LDL Routine 07/09/2024 10:12 AM EST Hypertension, unspecified type PROSTATE SPECIFIC ANTIGEN SCREEN Routine 07/09/2024 10:12 AM EST Screening for prostate cancer POC OCCULT BLOOD STOOL Routine 06/22/2024 9:45 AM EST Encounter for screening fecal occult blood testing HM HEPATITIS C SCREENING Routine 12/19/2020 COLONOSCOPY Routine 12/07/2015 8:44 AM EDT from Last 3 Months or Most Recently Relevant to Health Maintenance Results * Prostate specific antigen screen (07/09/2024 10:12 AM EST) Pathologist [facility] PSA 1.53 0.00 - 4.00 ng/mL LAB CHEMISTRY METHOD 07/09/2024 1:08 PM [facility] Blood Venous blood specimen / Unknown Venipuncture / Unknown 07/09/2024 10:12 AM EST 07/09/2024 10:12 AM EST [facility] - 07/09/2024 1:08 PM EST The Siemens Advia Centaur Chemiluminescent Immunoassay is used. Results obtained with different assay methods or kits cannot be used interchangeably. Results cannot be interpreted as absolute evidence of the presence or absence of malignant disease. Kamran Cabello MD LAB BLOOD ORDERABLES Anastasia orta Result [facility] [address] [place] [address], * Lipid panel with reflex to direct LDL (07/09/2024 10:12 AM EST) [facility] Cholesterol 155 0 - 200 mg/dL LAB CHEMISTRY METHOD 07/09/2024 1:16 PM [facility] Triglycerides 62 0 - 150 mg/dL LAB CHEMISTRY METHOD 07/09/2024 1:16 PM [facility] HDL 90 >=40 mg/dL LAB CHEMISTRY METHOD 07/09/2024 1:16 PM [facility] LDL Calculated 53 0 - 100 mg/dL LAB CHEMISTRY METHOD 07/09/2024 1:16 PM [facility] VLDL Cholesterol Itz 12.4 mg/dL LAB CHEMISTRY METHOD 07/09/2024 1:16 PM [facility] Non HDL Chol. (LDL+VLDL) 65 <145 mg/dL LAB CHEMISTRY METHOD 07/09/2024 1:16 PM [facility] Chol/HDL Ratio 1.7 0.0 - 4.4 LAB CHEMISTRY METHOD 07/09/2024 1:16 PM EST [facility] Blood Venous blood specimen / Unknown Venipuncture / Unknown 07/09/2024 10:12 AM EST 07/09/2024 10:12 AM EST Kamran Cabello MD LAB BLOOD ORDERABLES Anastasia l Result [facility] [address] [place] [address], * POC Fecal Immunochemical Testing (FIT) Screening or Diagnostic (06/22/2024 9:45 AM EST) Fecal Occult Blood POC Negative Negative Stool Rectum structure / Unknown 06/22/2024 9:45 AM EST Kamran Cabello MD POINT OF CARE TEST ENTER/ EDIT ORDERABLES Final Result * Hepatitis C Screening (12/19/2020) Hepatitis C Screening negative Historical Provider HEALTH MAINTENANCE Final Result * COLONOSCOPY (12/07/2015 8:44 AM EDT) Anatomical Region Laterality Modality Endoscopy Historical Provider GI~PROCEDURE ORDERABLES F inal Result from Last 3 Months or Most Recently Relevant to Health Maintenance Insurance [facility] Advance Directives Documents on File Type Date Recorded Patient Cruise Coordinator Expl anation Health Care Decision (hx) 08/09/2021 AD HERNANDEZ DIRECTIVE Health Care Decision (hx) 08/09/2021 AD HERNANDEZ DIRECTIVE Care Teams Control Officer Manager Relationship Specialty Start Date End Date Kamran Cabello MD [address] [place] [phone] PCP - General Internal Medicine 06/19/20
== END 2024-09-16 11:03 | disposition home or self-care (01) ==
LOC: HO.HKAS 10:29
PROVIDERS: PCP Internal Medicine; Visit Provider Internal Medicine Nephrology
DX: N28.1 Cyst of kidney, acquired (principal); R80.8 Other proteinuria; I12.9 Hypertensive chronic kidney disease with stage 1 through stage 4 chronic kidney disease, or unspecified chronic kidney disease; N18.4 Chronic kidney disease, stage 4 (severe); N25.81 Secondary hyperparathyroidism of renal origin; E55.9 Vitamin D deficiency, unspecified
CPT/HCPCS: 99214

== ENCOUNTER 2024-12-14 10:57 | Outpatient (REF) | payer BC, SELFPAY ==
--- OUTSIDE RECORDS SUMMARY | 2024-12-14 13:02 | XMS_ITS | Clinical Summary ---
Author Organization [facility] Address [address] [place] [address] Care Team Providers Care Audiovisual Equipment Operator Name Role Phone Kamran Cabello MD Primary Care Provider [phone] [phone] Allergies No known active allergies Medications Medication [...] Vaccine (1 of 2) 2015 Influenza Vaccine (Season Ended) 2025 Pneumococcal Vaccine Aged Out No long er eligible based on patient's age to complete this topic RSV Ped < 20 months Aged Out No longe r eligible based on patient's age to complete this topic Care Teams Audiovisual Equipment Operator Relationship Specialty Start Date End Date Kamran Cabello MD [address] [facility] [place] [address] PCP - General Internal Medicine 02/05/24
[2024-12-14 18:48] LABS: Vitamin D 25-OH Total 24.6 ng/mL (>30)
[2024-12-14 19:16] LABS: Anion Gap 13 (12-20); Blood Urea Nitrogen 43 mg/dL (9-16); Calcium 9.1 mg/dL (8.4-10.2); Carbon Dioxide 28 mmol/L (22-29); Chloride 105 mmol/L (96-108); Estimated Glomerular Filt Rate 15; Phosphorus 3.6 mg/dL (2.7-4.5); Potassium 5.1 mmol/L (3.3-5.1); Sodium 141 mmol/L (135-145)
== END 2024-12-14 10:58 | disposition home or self-care (01) ==
LOC: HO.HKASLDS 10:57
PROVIDERS: Visit Provider Internal Medicine Nephrology
DX: I12.9 Hypertensive chronic kidney disease with stage 1 through stage 4 chronic kidney disease, or unspecified chronic kidney disease (principal); N18.4 Chronic kidney disease, stage 4 (severe); I15.0 Renovascular hypertension; E55.9 Vitamin D deficiency, unspecified; N25.81 Secondary hyperparathyroidism of renal origin; N28.1 Cyst of kidney, acquired; R80.8 Other proteinuria
CPT/HCPCS: 36415; 80051; 82306; 82310; 82565; 84100; 84520

== ENCOUNTER 2024-12-28 10:03 | Outpatient (AMB) | payer BC, SELFPAY ==
[2024-12-28 10:04] VITALS: BP 190/110; PULSE 84; O2SAT 98; BMI 27.1
--- NOTE | 2024-12-28 10:04 | HO.NEPHOV_ITS ---
Vital Signs 12/28/24 10:04 Height 5 ft 8 in Weight 178 lb 6 oz BMI 27.1 BP 190/110 H Blood Pressure Location Lt brachial Position Sitting Pulse 84 Pulse Source Pulse Oximeter Pulse Oximetry (%) 98 Oxygen Delivery Method Room Air Intake Visit Reasons: 3mon follow-up w/labs-LVM Intake Note: Patient here for a follow-up. Calendar Control Clerk Blood Bank Required: No Accompanied by: Self / Same As Patient Allergies amlodipine (From Lotrel) Allergy (Verified 12/28/24 10:08) Numbness benazepril (From Lotrel) Allergy (Verified 12/28/24 10:08) Numbness Do you need a note to return to daycare/school/sports/work: No HPI Comments Details: 58-year-old gentleman was seen in follow up for management of his chronic kidney disease and hypertension. He has history of aortic dissection needing EVAR( July 2022)( Dr Carr). He also had stroke. He has longstanding hypertension and is known to have hypertensive cardiomyopathy. He has not been on any NANETTE inhibitor or ARB for unknown reasons. He had a CT angiogram which also picked up 3.7 cm low-density lesion in the lower pole of left kidney. He has seen urologist. He is known to have proteinuria over a gram but never had a renal biopsy .His blood pressure has been labile. He denies taking any drugs, excessive nonsteroidal anti-inflammatories or gwyq-euv-mldpjsz medications. He maintains good hydration. He does not have any chest pain, shortness of breath, proximal nocturnal dyspnea, orthopnea, worsening pedal edema, hematuria or orthostatic symptoms. 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 Anemia Expressive aphasia CVA (cerebral vascular accident) Aortic dissection Hyperaldosteronism Adrenal hyperplasia Surgical History Hx of repair of dissecting thoracic aortic aneurysm, Eyal type B Family History Mother Type 2 diabetes mellitus Hypertension Social History Alcohol intake: never Patient Tobacco Use Status: Never used Tobacco Review of Systems Const All systems reviewed & are unremarkable except as noted in HPI and below Physical Exam Vital Signs: Last Vital Signs Pulse 84 12/28/24 10:04 BP 190/110 H 12/28/24 10:04 Pulse Ox 98 12/28/24 10:04 Oxygen Delivery Method Room Air 12/28/24 10:04 BMI result Body Mass Index 27.1 Const General: comfortable and no acute distress Orientation/consciousness: patient oriented x3 HEENT Head: Yes normocephalic Mouth: Normal oral and palatal mucosa present Eyes EOM: EOMs intact bilaterally Neck Neck: Yes supple Resp Auscultation: clear to auscultation bilaterally Cardio Jugular venous distension: no JVD Rate: regular rate GI Palpation (GI): Soft to palpation Auscultation: normal bowel sounds General: Yes no CVA tenderness Back/Spine/Pelvis Back: no CVA tenderness Skin General skin exam: no rashes or lesions noted Neuro General: patient oriented x3 and moves all extremities Extrem General: Yes no pedal edema Results Reviewed Nephrology Results: Hgb, (14.0-18.0) 12.0 g/dl L 01/29/24 WBC, (4.8-10.8) 6.8 X10*3/uL 01/29/24 Plt Count, (160-400) 269 X10*3/uL 01/29/24 Sodium, (135-145) 141 mmol/L 12/14/24 Potassium, (3.3-5.1) 5.1 mmol/L 12/14/24 Chloride, (96-108) 105 mmol/L 12/14/24 Carbon Dioxide, (22-29) 28 mmol/L 12/14/24 BUN, (9-16) 43 mg/dL H 12/14/24 Creatinine, (0.5-1.4) 4.14 mg/dL H* 12/14/24 Calcium, (8.4-10.2) 9.1 mg/dL 12/14/24 Phosphorus, (2.7-4.5) 3.6 mg/dL 12/14/24 PTH Intact, (8.7-77.1) 193.4 pg/mL H 01/29/24 Assessment & Plan Assessment & Plan (1) Renovascular hypertension: Code(s): I15.0 - Renovascular hypertension Category: Medical (2) Hypertension: Code(s): I10 - Essential (primary) hypertension Category: Medical Qualifiers: Hypertension type: renovascular hypertension Qualified Code(s): I15.0 - Renovascular hypertension (3) Secondary hyperparathyroidism (of renal origin): Code(s): N25.81 - Secondary hyperparathyroidism of renal origin Category: Medical (4) Vitamin D deficiency: Code(s): E55.9 - Vitamin D deficiency, unspecified Category: Medical (5) CKD stage 4 secondary to hypertension: Code(s): I12.9 - Hypertensive chronic kidney disease with stage 1 through stage 4 chronic kidney disease, or unspecified chronic kidney disease; N18.4 - Chronic kidney disease, stage 4 (severe) Category: Medical (6) Renal cyst: Code(s): N28.1 - Cyst of kidney, acquired Category: Medical (7) Proteinuria: Code(s): R80.9 - Proteinuria, unspecified Category: Medical Qualifiers: Proteinuria type: other Qualified Code(s): R80.8 - Other proteinuria Plan Amrit has CKD likely from vascular disease. He had aortic dissection as well as stroke. His blood pressure is not very well controlled on current medications . He is on Amlodipine which I discontinued and started him on Nifedipine 30 mg daily which I may have to increase the dose. He is known to have proteinuria over a gram. He is on Vitamin D 1000 Units a day. I encouraged him to avoid nonsteroidal anti-inflammatories and maintain good hydration. He should get IV hydration before any IV contrast. Answered all questions. Labs ordered for F/U . Follow-up appointment given Orders: Orders Blood Urea Nitrogen 1 Month I12.9 - Hypertensive chronic kidney disease with stage 1 through stage 4 chronic kidney disease, or unspecified chronic kidney disease, N18.4 - Chronic kidney disease, stage 4 (severe) Electrolytes 1 Month I12.9 - Hypertensive chronic kidney disease with stage 1 through stage 4 chronic kidney disease, or unspecified chronic kidney disease, N18.4 - Chronic kidney disease, stage 4 (severe) Creatinine 1 Month I12.9 - Hypertensive chronic kidney disease with stage 1 through stage 4 chronic kidney disease, or unspecified chronic kidney disease, N18.4 - Chronic kidney disease, stage 4 (severe) Medications: New nifedipine ER 30 mg PO DAILY 90 tabs 1RF 90 days Changed From carvedilol 37.5 mg (1.5 x 25 mg) PO BID 30 days 90 tabs 3RF To carvedilol 37.5 mg (1.5 x 25 mg) PO BID 270 tabs 3RF 90 days Coding Level of Care Code Est Pt Level 4 (93147) Diagnoses Renovascular hypertension I15.0 Renovascular hypertension I15.0 Hypertension type: renovascular hypertension Secondary hyperparathyroidism (of renal origin) N25.81 Vitamin D deficiency E55.9 CKD stage 4 secondary to hypertension I12.9; N18.4 Renal cyst N28.1 Other proteinuria R80.8 Proteinuria type: other
--- OUTSIDE RECORDS SUMMARY | 2024-12-28 11:04 | XMS_ITS | Clinical Summary ---
Author Organization [facility] Address [address] [place] [address] Care Team Providers Care Container Maker Name Role Phone Kamran Cabello MD Primary Care Provider [phone] [phone] Allergies No known active allergies Medications Medication [...] 76 04/12/2024 10:54 AM EDT Temperature 37.1 C (98.8 F) 04/12/2024 10:54 AM EDT Respiratory Rate - - Oxygen Saturation 100% [...] age to complete this topic Care Teams Container Maker Relationship Specialty Start Date End Date Kamran Cabello MD [address] [facility] [place] [address] PCP - General Internal Medicine 02/05/24
== END 2024-12-28 10:37 | disposition home or self-care (01) ==
LOC: HO.HKAS 10:04
PROVIDERS: PCP Internal Medicine; Visit Provider Internal Medicine Nephrology
DX: N25.81 Secondary hyperparathyroidism of renal origin (principal); E55.9 Vitamin D deficiency, unspecified; I12.9 Hypertensive chronic kidney disease with stage 1 through stage 4 chronic kidney disease, or unspecified chronic kidney disease; N18.4 Chronic kidney disease, stage 4 (severe); N28.1 Cyst of kidney, acquired; R80.8 Other proteinuria
CPT/HCPCS: 99214

== ENCOUNTER 2025-01-27 11:05 | Outpatient (AMB) | payer BC, SELFPAY ==
--- NOTE | 2025-01-27 11:14 | HO.NEPHOV ---
Vital Signs 01/27/25 11:15 Height 5 ft 8 in Weight 181 lb 6 oz BMI 27.6 BP 150/100 H Blood Pressure Location Lt brachial Position Sitting Pulse 75 Pulse Source Pulse Oximeter Pulse Oximetry (%) 98 Oxygen Delivery Method Room Air Intake Visit Reasons: 1m follow up-[facility] [address] Clerk Required: No Accompanied by: Self / Same As Patient Allergies amlodipine (From Lotrel) Allergy (Verified 01/27/25 11:15) Numbness benazepril (From Lotrel) Allergy (Verified 01/27/25 11:15) Numbness HPI Comments Details: 58-year-old gentleman was seen in follow up for management of his chronic kidney disease and hypertension. He has history of aortic dissection needing EVAR( July 2022)( Dr Carr). He also had stroke. He has longstanding hypertension and is known to have hypertensive cardiomyopathy. He has not been on any NANETTE inhibitor or ARB for unknown reasons. He had a CT angiogram which also picked up 3.7 cm low-density lesion in the lower pole of left kidney. He has seen urologist. He is known to have proteinuria over a gram but never had a renal biopsy .His blood pressure has been labile. He denies taking any drugs, excessive nonsteroidal anti-inflammatories or vlkj-yzj-aezyqis medications. He maintains good hydration. He does not have any chest pain, shortness of breath, proximal nocturnal dyspnea, orthopnea, worsening pedal edema, hematuria or orthostatic symptoms. His last serum creatinine is worse. 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 Anemia Expressive aphasia CVA (cerebral vascular accident) Aortic dissection Hyperaldosteronism Adrenal hyperplasia Surgical History Hx of repair of dissecting thoracic aortic aneurysm, Glasgow type B Family History Mother Type 2 diabetes mellitus Hypertension Social History Alcohol intake: never Patient Tobacco Use Status: Never used Tobacco Review of Systems Const All systems reviewed & are unremarkable except as noted in HPI and below Physical Exam Vital Signs: Last Vital Signs Pulse 75 01/27/25 11:15 BP 150/100 H 01/27/25 11:15 Pulse Ox 98 01/27/25 11:15 Oxygen Delivery Method Room Air 01/27/25 11:15 BMI result Body Mass Index 27.6 Const General: comfortable and no acute distress Orientation/consciousness: patient oriented x3 HEENT Head: Yes normocephalic Mouth: Normal oral and palatal mucosa present Eyes EOM: EOMs intact bilaterally Neck Neck: Yes supple Resp Auscultation: clear to auscultation bilaterally Cardio Jugular venous distension: no JVD Rate: regular rate GI Palpation (GI): Soft to palpation Auscultation: normal bowel sounds General: Yes no CVA tenderness Back/Spine/Pelvis Back: no CVA tenderness Skin General skin exam: no rashes or lesions noted Neuro General: patient oriented x3 and moves all extremities Results Reviewed Nephrology Results: Hgb, (14.0-18.0) 12.0 g/dl L 01/29/24 WBC, (4.8-10.8) 6.8 X10*3/uL 01/29/24 Plt Count, (160-400) 269 X10*3/uL 01/29/24 Sodium, (135-145) 141 mmol/L 12/14/24 Potassium, (3.3-5.1) 5.1 mmol/L 12/14/24 Chloride, (96-108) 105 mmol/L 12/14/24 Carbon Dioxide, (22-29) 28 mmol/L 12/14/24 BUN, (9-16) 43 mg/dL H 12/14/24 Creatinine, (0.5-1.4) 4.14 mg/dL H* 12/14/24 Calcium, (8.4-10.2) 9.1 mg/dL 12/14/24 Phosphorus, (2.7-4.5) 3.6 mg/dL 12/14/24 PTH Intact, (8.7-77.1) 193.4 pg/mL H 01/29/24 Assessment & Plan Assessment & Plan (1) Renovascular hypertension: Code(s): I15.0 - Renovascular hypertension Category: Medical (2) Secondary hyperparathyroidism (of renal origin): Code(s): N25.81 - Secondary hyperparathyroidism of renal origin Category: Medical (3) Vitamin D deficiency: Code(s): E55.9 - Vitamin D deficiency, unspecified Category: Medical (4) CKD stage 4 secondary to hypertension: Code(s): I12.9 - Hypertensive chronic kidney disease with stage 1 through stage 4 chronic kidney disease, or unspecified chronic kidney disease; N18.4 - Chronic kidney disease, stage 4 (severe) Category: Medical (5) Renal cyst: Code(s): N28.1 - Cyst of kidney, acquired Category: Medical (6) Proteinuria: Code(s): R80.9 - Proteinuria, unspecified Category: Medical Qualifiers: Proteinuria type: other Qualified Code(s): R80.8 - Other proteinuria Plan Amrit has CKD likely from vascular disease. He had aortic dissection as well as stroke. His blood pressure is labile on current medications. He is known to have proteinuria over a gram. He is on Vitamin D 1000 Units a day. I encouraged him to avoid nonsteroidal anti-inflammatories and maintain good hydration. He should get IV hydration before any IV contrast. Answered all questions. Labs ordered for F/U . Follow-up appointment given Orders: Orders Creatinine 4 Weeks I12.9 - Hypertensive chronic kidney disease with stage 1 through stage 4 chronic kidney disease, or unspecified chronic kidney disease, N18.4 - Chronic kidney disease, stage 4 (severe) Blood Urea Nitrogen 4 Weeks I12.9 - Hypertensive chronic kidney disease with stage 1 through stage 4 chronic kidney disease, or unspecified chronic kidney disease, N18.4 - Chronic kidney disease, stage 4 (severe) Electrolytes 4 Weeks I12.9 - Hypertensive chronic kidney disease with stage 1 through stage 4 chronic kidney disease, or unspecified chronic kidney disease, N18.4 - Chronic kidney disease, stage 4 (severe) Medications: Discontinued nifedipine ER Discontinued Reason: Doctor's Order 30 mg PO DAILY 90 days 90 tabs 1RF Coding Level of Care Code Est Pt Level 4 (72711) Diagnoses Renovascular hypertension I15.0 Secondary hyperparathyroidism (of renal origin) N25.81 Vitamin D deficiency E55.9 CKD stage 4 secondary to hypertension I12.9; N18.4 Renal cyst N28.1 Other proteinuria R80.8 Proteinuria type: other
[2025-01-27 11:15] VITALS: BP 150/100; PULSE 75; O2SAT 98; BMI 27.6
--- OUTSIDE RECORDS SUMMARY | 2025-01-27 11:57 | XMS_ITS | Clinical Summary ---
Author Organization [facility] Address [address] [place] [address] Phone Care Team Providers Care Poultry Scalder Name Role Phone Kamran Cabello MD Primary Care Provider [phone] Allergies Active Allergy Reactions Criticality Noted Date Comments Amlodipine-Benazepril Other (See Comments) 12/19/2020 Ferumoxytol High 12/14/2021 Severe hypotension and chest pain Medications amLODIPine (NORVASC) 10 MG tablet Take 1 tablet by mouth every morning. 3 Active carvedilol (COREG) 25 MG tablet Take 1 tablet by mouth 2 (two) times a day. Taking a 1.5 tablets twice a day. 3 Active aspirin 81 MG EC tablet Take 1 tablet by mouth every morning. 3 Active atorvastatin (LIPITOR) 40 MG tablet Take 1 tablet by mouth every morning. 3 Active ferrous sulfate 325 mg (65 mg qagan tayagungin iron) EC tablet Take 325 mg by mouth 3 (three) times a day. 2 Active ascorbic acid, vitamin C, (VITAMIN C) 250 MG tablet Take 1 tablet by mouth every morning. 4 Active LEVOXYL 137 mcg tabletIndications:P ostablative hypothyroidism Take 1 tablet (137 mcg total) by mouth every morning. 90 tablet 3 4 Active Active Problems Problem Noted Date Diagnosed Date Anemia CKD (chronic kidney disease), stage IV Hyperaldosteronism Overview (02/10/2023): Bilateral gland hyperplasia, follows w/ renal Hyperlipidemia Hyperparathyroidism due to renal insufficiency Hypertensive renal disease Hypokalemia Hypothyroid Overview (02/10/2023): Hx JACQUES Assessment & Plan (02/16/2024 11:16 AM EDT): Reports good consistency taking rx appropriately. Will check labs & adjust rx as appropriate. To call/message via portal if hasn't heard from me with results within 1-2 weeks. If levels normal, will repeat labs yearly, sooner prn symptoms of thyroid dysfunction or > 10-15# weight change, or as otherwise clinically indicated. Assessment & Plan (02/10/2023 10:15 AM EDT): Reports good consistency taking rx appropriately. Will check labs & adjust rx as appropriate. Will shift back to levoxyl, which he has been on for years. To call/message via portal if hasn't heard from me with results within 1-2 weeks. If levels normal, will repeat labs yearly, sooner prn symptoms of thyroid dysfunction or > 10-15# weight change, or as otherwise clinically indicated. Secondary hypertension Assessment & Plan (02/16/2024 11:16 AM EDT): Following w/ renal. Recent medication adjustment. BP looks good today. PCP ?d need for additional evaluation/imaging. I would assume does not need further testing, but can double check w/ renal as well. Aortic dissection Overview (02/10/2023): s/p TEVAR Social History Tobacco Use Types Packs/Day Years Used Date Smoking Tobacco: Never Smokeless Tobacco: Never Tobacco Cessation:Counseling Given: Not Answered Alcohol Use Standard Drinks/Week Comments Never 0 (1 standard drink = 0.6 oz pur e alcohol) Education Answer Date Recorded Are you interested in more education? Not on vilma e 11/11/2022 Are you concerned about learning? Not on file 11/11/2022 No 11/11/2022 No 11/11/2022 Digital Access Answer Date Recorded No 12/03/2022 No 12/03/2022 Reliable internet access at home? Not on file 12/03/2022 Device with a working camera? Not on file Sex and Gender Information Value Date Recorded Sex Assigned at Not on file Legal Sex Male 11:27 AM EDT Gender Identity Not on file Sexual Orientation Not on file Last Filed Vital Signs Vital Sign Reading Time Taken Comments Blood Pressure 132/70 02/16/2024 10:49 AM EDT Pulse 79 02/16/2024 10:49 AM EDT Temperature 36.7 C (98 F) 02/16/2024 10:49 AM EDT Respiratory Rate 17 02/16/2024 10:49 AM EDT Oxygen Saturation 99% 02/16/2024 10:49 AM EDT Inhaled Oxygen Concentration - - Weight 75.3 kg (166 lb) 02/16/2024 10:49 AM EDT Height 171.5 cm (5' 7.52 ) 02/16/2024 10:49 AM E DT Body Mass Index 25.6 02/16/2024 10:49 AM EDT Plan of Treatment Upcoming Encounters Date Type Department Care Team (Late st Contact Info) Description 02/14/2025 10:20 AM EDT Office Visit [facility] Endocrinology [address] [phone] Maria Antonia Botello MD [address] [place] [id number] [email or web address] Health Maintenance Due Date Last Done Comments Adult Td,Tdap Booster 1965 DEPRESSION SCREENING 1977 HIV ONE-TIME SCREENING (18-6 5 YEARS) 1983 SCREENING FOR DIABETES 2000 COLOGUARD 2010 COLONOSCOPY 2010 COLORECTAL CANCER SCREENING 2010 FIT TEST 2010 FOBT 2010 SIGMOIDOSCOPY 2010 VIRTUAL COLONOSCOPY 2010 PNEUMOCOCCAL VACCINES (50+ years) (1 of 1 - PCV) 2015 ZOSTER VACCINES (1 of 2) 2015 COVID-19 VACCINE (1 - 2023-2 5 season) 2024 BLOOD PRESSURE 08/18/2024 02/16/2024 TSH LEVEL 02/15/2025 02/16/2024, 02/12/2023, 02/10/2023 LIPID PANEL 01/09/2028 01/08/2023 HEPATITIS C SCREENING Completed 12/19/2020 SMOKING STATUS SCREENING (On ce After 26 Yrs) Completed 02/16/2024 HEPATITIS A VACCINES Aged Out No long er eligible based on patient's age to complete this topic HIB VACCINES Aged Out No longer eligi ble based on patient's age to complete this topic MENINGOCOCCAL VACCINES (ACWY) Aged Out No longer eligible based on patient's age to complete this topic MENINGOCOCCAL VACCINES (B) Aged Out N o longer eligible based on patient's age to complete this topic Medical Devices Not on file Procedures Procedure Name Priority Date/Time Associated Diagnosis Comments TSH WITH REFLEX Routine 02/16/2024 11:28 AM EDT Postablative hypothyroidism OUTSIDE HEPATITIS C VIRUS SCREENING Routine 12/19/2020 from Last 3 Months or Most Recently Relevant to Health Maintenance Results * TSH with reflex (02/16/2024 11:28 AM EDT) TSH 1.12 0.27 - 4.20 uIU/mL [facility] Blood 02/16/2024 11:2 8 AM EDT 02/16/2024 11:31 AM EDT Maria Antonia Botello MD LAB BLOOD ORDERABLES F inal Result [facility] [address] [place] [address] * Outside Hepatitis C Virus Screening (12/19/2020) Hepatitis C Screening - External Neg us Historical Provider LAB BLOOD ORDERABLES Anastasia l Result from Last 3 Months or Most Recently Relevant to Health Maintenance Insurance [facility] HMO [place] [address] [place], [place] [id number] [place] [address] [place] [address] [facility] Care Teams Poultry Scalder Relationship Specialty Start Date End Date Kamran Cabello MD [address] [place] [phone] PCP - General Internal Medicine 02/10/23 Additional Source Comments The information contained in this document represents components of the legal health record. It is not the complete legal health record.[facility]
--- OUTSIDE RECORDS SUMMARY | 2025-01-27 11:57 | XMS_ITS | Clinical Summary ---
Author Organization [place] [address] [address] [facility] Building Address [address] [place] [address] Phone Care Team Providers Care Pharmaceutical Sales Specialist Name Role Phone Kamran Cabello MD Primary Care Provider [phone] Allergies Active Allergy Reactions Criticality Noted Date Comments Amlodipine-Benazepril Numbness 12/19/2020 Ferumoxytol High 12/14/2021 Severe hypotension and chest pain Medications atorvastatin (LIPITOR) 40 mg tablet Take 1 [...] a day. 90 tablet 1 5 Active amLODIPine (NORVASC) 10 mg tablet Take 1 tablet (10 mg total) by mouth 1 (one) time each day. 30 tablet 5 Active amLODIPine (NORVASC) 10 mg tablet Take 1 tablet (10 mg total) by mouth 1 (one) time each day. 90 tablet 1 5 01/22/20 25 Discontinu ed(Reorder ) Active Problems Problem Noted Date Diagnosed Date Hx of repair of dissecting t horacic aortic aneurysm, Eyal type B 03/14/2022 Adrenal hyperplasia ([facility] V24) 10/31/2021 Aortic dissection ([facility] V24, [facility] V28) 08/2021 Overview (09/15/2023): Had acute type B aortic dissection on 07/23/2021 and underwent emergent type B dissection repair with TEVAR (07/2021) by Dr. Padilla. s/p TEVAR CVA (cerebral vascular accident) ([facility] V24, [place] V28) 09/05/2021 Hyperaldosteronism ([facility] V24) 09/05/2021 Overview (09/15/2023): Bilateral gland hyperplasia, follows [...] aphasia 09/05/2021 CKD stage 4 secondary to hyp ertension ([facility] V24, [facility] V28) 05/12/2018 Assessment & Plan (06/18/2024 10:30 AM EST): Being monitored by nephrology. He will avoid NSAIDs. Hypertension 01/31/2017 Assessment & Plan (06/18/2024 10:30 AM EST): Patient will follow a low sodium diet. Continue regimen of amlodipine, carvedilol. Orders: Lipid panel with reflex to direct LDL; Future Postablative hypothyroidism 01/31/2017 Overview (09/15/2023): Follow[place] by Dr. Botello (Rad Iodine ~1999) [place] [facility] Assessment & Plan (06/18/2024 10:30 AM EST): Continue current levothyroxine. Followed by endocrinology. Encounters Date Type Department Care Team Description 12/23/2024 Telephone Internal Medicine - [facility] [address] [facility] [address] Kamran Cabello MD Referral ([facility]TERNAL- [facility]) 11/23/2024 Telephone Internal Medicine - [facility] [address] [place], [place] [address] [address] Kamran Cabello MD Referral (Cardiology FYI/) 11/23/2024 [facility]phone [facility] [address] [place], [place] [address] [address] Kamran Cabello MD Referral 11/03/2024 [facility] [address] [place], [place] [address] [address] Kamran Cabello MD Referral from Last 3 Months Surgical History Surgery Date Site/Laterality Comments OTHER SURGICAL HISTORY PROCEDURE: DENIES PREVIOUS SURGERY AAA REPAIR PROCEDURE:ABDOMINAL AORTIC ANEURYSM REPAIR Medical History Medical History Date Comments Other postablative hypothyroidism 01/31/2017 DX:Other postablative hypothyroidism Hypertension 01/31/2017 DX:Hypertension CKD (chronic kidney disease) stage 3, GFR 30-59 ml/min (CMS/HCC V24, CMS/HCC V28) 05/12/2018 DX:CKD (chronic kidney disea se) stage 3, GFR 30-59 ml/min (HCC) Hyperaldosteronism (CMS/HCC V24) 09/05/2021 DX:Hyperaldosteronism (HCC) Aortic dissection (CMS/HCC V 24, CMS/HCC V28) 09/05/2021 DX:Aortic dissection (HCC) CVA (cerebral vascular accid ent) ([facility] V24, [facility] V28) 09/05/2021 DX:CVA (cerebral vascular a ccident) ([facility]) Expressive aphasia 09/05/2021 DX:Expressive aphasia Anemia 09/05/2021 DX:Anemia; COMME NT: Acute blood loss anemia in the setting of aortic dissection repair. Stroke ([facility] V24, [facility] V28) DX:Stroke (HCC) Hypertension DX:Hypertension Family History Medical [...] Care Team (Late st Contact Info) Description 03/18/2025 9:45 AM EDT Office Visit Internal Medicine - [address] [phone] Kamran Cabello MD [address] [place] [phone] Health Maintenance Due Date Last Done Comments COVID-19 Vaccine (#1) 1970 DTaP,Tdap,and Td Vaccines (1 - Tdap) 1984 Hepatitis B Vaccines (1 of 3 - 19+ 3-dose series) 1984 Zoster Vaccines (1 of 2) 1984 Pneumococcal Vaccine: 50+ Years (1 of 1 - PCV) 2015 HIV Screening 06/15/2022 Social Influencers of Health Screening 06/15/2022 Depression Screening 07/07/2024 Hypertension/CHF/CAD Annual BMP Blood Test 12/08/2024 12/09/2023 Influenza Vaccine (#1) 2025 Colorectal Cancer Screening: Colonoscopy 12/19/2025 12/20/2015, 12/07/2015 Cholesterol Screening (Lipid Panel) 07/09/2029 07/09/2024, 01/08/2023 RSV Immunization Adult Patients (1 - 1-dose 75+ series) 2040 Hepatitis [...] age to complete this topic Meningococcal B Vaccine Aged Out No l onger eligible based on patient's age to complete this topic RSV Immunization Patients Under 20 months Aged Out No longer eligible based on patient's age to complete this topic Varicella Vaccines Aged Out No longer eligible based on patient's age to complete this topic Procedures Procedure Name Priority Date/Time Associated Diagnosis Comments LIPID PANEL WITH REFLEX TO DIRECT LDL Routine 07/09/2024 10:12 AM EST Hypertension, unspecified type POC OCCULT BLOOD STOOL Routine 06/22/2024 9:45 AM EST Encounter for screening fecal occult blood testing HM HEPATITIS C SCREENING Routine 12/19/2020 COLONOSCOPY Routine 12/07/2015 8:44 AM EDT from Last 3 Months or Most Recently Relevant to Health Maintenance Results * Lipid panel with reflex to direct LDL (07/09/2024 10:12 AM EST) Cholesterol 155 0 - 200 mg/dL LAB CHEMISTRY METHOD 07/09/2024 1:16 PM EST [facility] Triglycerides 62 0 - 150 mg/dL LAB CHEMISTRY METHOD 07/09/2024 1:16 PM EST [facility] HDL 90 >=40 mg/dL LAB CHEMISTRY METHOD 07/09/2024 1:16 PM EST [facility] LDL Calculated 53 0 - 100 mg/dL LAB CHEMISTRY METHOD 07/09/2024 1:16 PM EST [facility] VLDL Cholesterol Itz 12.4 mg/dL LAB CHEMISTRY METHOD 07/09/2024 1:16 PM EST [facility] Non HDL Chol. (LDL+VLDL) 65 <145 mg/dL LAB CHEMISTRY METHOD 07/09/2024 1:16 PM EST [facility] Chol/HDL Ratio 1.7 0.0 - 4.4 LAB CHEMISTRY METHOD 07/09/2024 1:16 PM EST [facility] Blood Venous blood specimen / Unknown Venipuncture / Unknown 07/09/2024 10:12 AM EST 07/09/2024 10:12 AM EST Kamran Cabello MD LAB BLOOD ORDERABLES Anastasia l Result [facility] [address] [place] [address], [place] [phone] * POC Fecal Immunochemical Testing (FIT) Screening [...] Most Recently Relevant to Health Maintenance Insurance [facility] Advance Directives Documents on File Type Date Recorded Patient Yield Analyst Expl anation Health Care Decision (hx) 08/09/2021 AD HERNANDZE DIRECTIVE Health Care Decision (hx) 08/09/2021 AD HERNANDEZ DIRECTIVE Care Teams Pharmaceutical Sales Specialist Relationship Specialty Start Date End Date Kamran Cabello MD [address] [place] [id number] PCP - General Internal Medicine 06/19/20
--- OUTSIDE RECORDS SUMMARY | 2025-01-27 11:57 | XMS_ITS ---
Author Name [facility] Organization Unknown Care Team Organization Name Specialty Phone Email Start Date End Da te [facility] Kamran Cabello Primary Care 05/14/2022 02/23/2024
--- OUTSIDE RECORDS SUMMARY | 2025-01-27 11:57 | XMS_ITS | Encounter Summary ---
Author Organization [facility], Address [address] [place] [address] Phone Care Team Providers Care Tobacco Stripping Machine Operator Name Role Phone Kamran Anderson Primary Care Provider [phone] Encounter Details Date Type Department Care Team (Late st Contact Info) Description 10/30/2021 Documentation Only [facility], [address] [place] [phone] Chandrakant Darden MD [address] [place] [phone] Social History Tobacco Use Types Packs/Day Years [...] on filedocumented in this encounter Care Teams Tobacco Stripping Machine Operator Relationship Specialty Start Date End Date Kamran Anderson [address] [place] [phone] PCP - General Internal Medicine 02/07/21 documented as of this encounter
--- OUTSIDE RECORDS SUMMARY | 2025-01-27 11:57 | XMS_ITS | Clinical Summary ---
Author Organization [facility] Address [address] [place] [address] Care Team Providers Care Patient Service Associate Name Role Phone Kamran Cabello MD Primary Care Provider [phone] Allergies No known active allergies Medications Medication [...] (1 of 2) 2015 Influenza Vaccine (#1) 2025 Pneumococcal Vaccine Aged Out No long er eligible based on patient's age to complete this topic RSV Ped < 20 months Aged Out No longe r eligible based on patient's age to complete this topic Care Teams Patient Service Associate Relationship Specialty Start Date End Date Kamran Cabello MD [address] [facility] [place] [address] PCP - General Internal Medicine 02/05/24
== END 2025-01-27 12:00 | disposition home or self-care (01) ==
LOC: HO.HKAS 11:05
PROVIDERS: PCP Internal Medicine; Visit Provider Internal Medicine Nephrology
DX: I15.0 Renovascular hypertension (principal); N25.81 Secondary hyperparathyroidism of renal origin; E55.9 Vitamin D deficiency, unspecified; N18.4 Chronic kidney disease, stage 4 (severe); N28.1 Cyst of kidney, acquired; R80.8 Other proteinuria
CPT/HCPCS: 99214

== ENCOUNTER 2025-03-08 10:45 | Outpatient (REF) | payer BC, SELFPAY ==
[2025-03-08 18:23] LABS: Anion Gap 14 (12-20); Blood Urea Nitrogen 45 mg/dL (9-16); Carbon Dioxide 25 mmol/L (22-29); Chloride 105 mmol/L (96-108); Potassium 4.4 mmol/L (3.3-5.1); Sodium 140 mmol/L (135-145)
[2025-03-08 18:47] LABS: Estimated Glomerular Filt Rate 13
== END 2025-03-08 10:46 | disposition home or self-care (01) ==
LOC: HO.HKASLDS 10:45
PROVIDERS: PCP Internal Medicine; Visit Provider Internal Medicine Nephrology
DX: I12.9 Hypertensive chronic kidney disease with stage 1 through stage 4 chronic kidney disease, or unspecified chronic kidney disease (principal); N18.4 Chronic kidney disease, stage 4 (severe); R80.9 Proteinuria, unspecified; N28.1 Cyst of kidney, acquired; E55.9 Vitamin D deficiency, unspecified; N25.81 Secondary hyperparathyroidism of renal origin
CPT/HCPCS: 36415; 80051; 82565; 84520

== ENCOUNTER 2025-03-08 10:45 | Outpatient (AMB) | payer BC, SELFPAY ==
--- NOTE | 2025-03-08 10:55 | HO.NEPHOV_ITS ---
Vital Signs 03/08/25 10:57 Height 5 ft 8 in Weight 182 lb 2 oz BMI 27.7 BP 140/90 H Blood Pressure Location Lt brachial Position Sitting Pulse 67 Pulse Source Pulse Oximeter Pulse Oximetry (%) 98 Oxygen Delivery Method Room Air Intake Visit Reasons: 4wk f/u w/labs-LVM Parking Enforcer Required: No Accompanied by: Self / Same As Patient Allergies amlodipine (From Lotrel) Allergy (Verified 03/08/25 10:57) Numbness benazepril (From Lotrel) Allergy (Verified 03/08/25 10:57) Numbness HPI Comments Details: 58-year-old gentleman was seen in follow up for management of his chronic kidney disease and hypertension. He has history of aortic dissection needing EVAR( July 2022)( Dr Carr). He also had stroke. He has longstanding hypertension and is known to have hypertensive cardiomyopathy. He has not been on any NANETTE inhibitor or ARB for unknown reasons. He had a CT angiogram which also picked up 3.7 cm low-density lesion in the lower pole of left kidney. He has seen urologist. He is known to have proteinuria over a gram but never had a renal biopsy .His blood pressure has been labile. He denies taking any drugs, excessive nonsteroidal anti-inflammatories or kncy-qgj-knqsqey medications. He maintains good hydration. He does not have any chest pain, shortness of breath, proximal nocturnal dyspnea, orthopnea, worsening pedal edema, hematuria or orthostatic symptoms. His last serum creatinine is worse. His Amlodipine was changed to nifedipine which he did not tolerate and he went back to Amlodipine [facility] Medical History Hypertension Postablative hypothyroidism CKD stage 4 secondary to hypertension Anemia Expressive aphasia CVA (cerebral vascular accident) Aortic dissection Hyperaldosteronism Adrenal hyperplasia Surgical History Hx of repair of dissecting thoracic aortic aneurysm, [place] type B Family History Mother Type 2 diabetes mellitus Hypertension Social History Alcohol intake: never Patient Tobacco Use Status: Never used Tobacco Review of Systems Const All systems reviewed & are unremarkable except as noted in HPI and below Physical Exam Vital Signs: Last Vital Signs Pulse 67 03/08/25 10:57 BP 140/90 H 03/08/25 10:57 Pulse Ox 98 03/08/25 10:57 Oxygen Delivery Method Room Air 03/08/25 10:57 BMI result Body Mass Index 27.7 Const General: comfortable and no acute distress Orientation/consciousness: patient oriented x3 HEENT Head: Yes normocephalic Mouth: Normal oral and palatal mucosa present Eyes EOM: EOMs intact bilaterally Neck Neck: Yes supple Resp Auscultation: clear to auscultation bilaterally Cardio Jugular venous distension: no JVD Rate: regular rate GI Palpation (GI): Soft to palpation Auscultation: normal bowel sounds General: Yes no CVA tenderness Back/Spine/Pelvis Back: no CVA tenderness Skin General skin exam: no rashes or lesions noted Neuro General: patient oriented x3 and moves all extremities Extrem General: Yes no pedal edema Results Reviewed Nephrology Results: Hgb, (14.0-18.0) 12.0 g/dl L 01/29/24 WBC, (4.8-10.8) 6.8 X10*3/uL 01/29/24 Plt Count, (160-400) 269 X10*3/uL 01/29/24 Sodium, (135-145) 141 mmol/L 12/14/24 Potassium, (3.3-5.1) 5.1 mmol/L 12/14/24 Chloride, (96-108) 105 mmol/L 12/14/24 Carbon Dioxide, (22-29) 28 mmol/L 12/14/24 BUN, (9-16) 43 mg/dL H 12/14/24 Creatinine, (0.5-1.4) 4.14 mg/dL H* 12/14/24 Calcium, (8.4-10.2) 9.1 mg/dL 12/14/24 Phosphorus, (2.7-4.5) 3.6 mg/dL 12/14/24 PTH Intact, (8.7-77.1) 193.4 pg/mL H 01/29/24 Assessment & Plan Assessment & Plan (1) CKD stage 4 secondary to hypertension: Code(s): I12.9 - Hypertensive chronic kidney disease with stage 1 through stage 4 chronic kidney disease, or unspecified chronic kidney disease; N18.4 - Chronic kidney disease, stage 4 (severe) Category: Medical (2) Hypertension: Code(s): I10 - Essential (primary) hypertension Category: Medical Qualifiers: Hypertension type: renovascular hypertension Qualified Code(s): I15.0 - Renovascular hypertension (3) Proteinuria: Code(s): R80.9 - Proteinuria, unspecified Category: Medical Qualifiers: Proteinuria type: other Qualified Code(s): R80.8 - Other proteinuria (4) Renal cyst: Code(s): N28.1 - Cyst of kidney, acquired Category: Medical (5) Secondary hyperparathyroidism (of renal origin): Code(s): N25.81 - Secondary hyperparathyroidism of renal origin Category: Medical (6) Vitamin D deficiency: Code(s): E55.9 - Vitamin D deficiency, unspecified Category: Medical Plan Amrit has CKD likely from vascular disease. He had aortic dissection as well as stroke. His blood pressure is labile on current medications. He is known to have proteinuria over a gram. He is on Vitamin D 1000 Units a day. I encouraged him to avoid nonsteroidal anti-inflammatories and maintain good hydration. He should get IV hydration before any IV contrast. Answered all questions. Labs ordered for F/U . Follow-up appointment given Orders: Orders Electrolytes 2 Months E55.9 - Vitamin D deficiency, unspecified, I12.9 - Hypertensive chronic kidney disease with stage 1 through stage 4 chronic kidney disease, or unspecified chronic kidney disease, I15.0 - Renovascular hype rtension, N18.4 - Chronic kidney disease, stage 4 (severe), N25.81 - Secondary hyperparathyroidism of renal origin, N28.1 - Cyst of kidney, acquired, R80.8 - Other proteinuria Blood Urea Nitrogen 2 Months E55.9 - Vitamin D deficiency, unspecified, I12.9 - Hypertensive chronic kidney disease with stage 1 through stage 4 chronic kidney disease, or unspecified chronic kidney disease, I15.0 - Renovascular hypertension, N18.4 - Chronic kidney disease, stage 4 (severe), N25.81 - Secondary hyperparathyroidism of renal origin, N28.1 - Cyst of kidney, acquired, R80.8 - Other proteinuria Creatinine 2 Months E55.9 - Vitamin D deficiency, unspecified, I12.9 - Hypertensive chronic kidney disease with stage 1 through stage 4 chronic kidney disease, or unspecified chronic kidney disease, I15.0 - Renovascular hypertension, N18.4 - Chronic kidney disease, stage 4 (severe), N25.81 - Secondary hyperparathyroidism of renal origin, N28.1 - Cyst of kidney, acquired, R80.8 - Other proteinuria Medications: New amlodipine 10 mg PO DAILY 90 tabs 4RF amlodipine 10 mg PO DAILY 30 tabs 11RF Coding Level of Care Code Est Pt Level 4 (05651) Diagnoses CKD stage 4 secondary to hypertension I12.9; N18.4 Renovascular hypertension I15.0 Hypertension type: renovascular hypertension Other proteinuria R80.8 Proteinuria type: other Renal cyst N28.1 Secondary hyperparathyroidism (of renal origin) N25.81 Vitamin D deficiency E55.9
[2025-03-08 10:57] VITALS: BP 140/90; PULSE 67; O2SAT 98; BMI 27.7
--- OUTSIDE RECORDS SUMMARY | 2025-03-08 12:15 | XMS_ITS | Encounter Summary ---
Author Organization [facility] Address [address] [place] [address] Phone Care Team Providers Care Ignition Mechanic Name Role Phone Kamran Cabello MD Primary Care Provider [phone] Kam Douglass MD Unavailable Encounter Details Date Type Department Care Team (Late st Contact Info) Description 02/14/2025 Orders Only [facility] Endocrinology [address] [address] Maria Antonia Botello MD [address] [place] [address] [email or web address] Postablative hypothyroidism (Primary Dx) Social History Tobacco Use Types Packs/Day Years Used Date Smoking Tobacco: Never Smokeless Tobacco: Never Alcohol Use Standard Drinks/Week Comments Never 0 [...] as of this encounter Plan of Treatment Upcoming Encounters Date Type Department Care Team (Late st Contact Info) Description 02/14/2026 10:00 AM EDT Office Visit [facility] Endocrinology [place] [address] [place] [address] Maria Antonia Botello MD [address] [address] [email or web address] Scheduled Orders Name Type Priority Associated Diagnoses Orde r Schedule TSH with reflex Lab Routine Postablative hypothyroidism Expected: 04/16/2025, Expires: 02/14/2026 documented as of this encounter Visit Diagnoses Diagnosis Postablative hypothyroidism- Primary Other postablative hypothyroidism documented in this encounter Care Teams Ignition Mechanic Relationship Specialty Start Date End Date Kamran Cabello MD [address] [place] [address] PCP - General Internal Medicine 02/10/23 Kam Douglass MD [facility] [address] [place] [address] Nephrology 02/14/25 documented as of this encounter Additional Source Comments The information contained in this document represents components of the legal health record. It is not the complete legal health record.[facility]
--- OUTSIDE RECORDS SUMMARY | 2025-03-08 12:15 | XMS_ITS | Encounter Summary ---
Author Organization [facility] Address [address] [place] [address] Care Team Providers Care Software Application Tester Name Role Phone Kamran Cabello MD Primary Care Provider [phone] Reason for Referral * Consultation (Routine) - Pending Review Specialty Diagnoses / Procedures Referred By Ricky house Referred To Contact Endocrinology Diagnoses Postablative hypothyroidism Eran Capellan PA [address] [place] [address] Phone: tel: fax: Maria Antonia Botello MD [address] [place] [address] Phone: tel: fax: Referral ID Status Reason Start Date Expiration Date Visits Requested Visits Authorized [id number] Pending Review Specialty Services Required 01/31/2025 01/31/2026 6 6 Reason for Visit * Reason Onset Date Comments Referral 01/31/2025 Encounter Details Date Type Department Care Team (Late st Contact Info) Description 01/31/2025 [facility] [address] [place] [phone] Kamran Cabello MD [address] [place] [address] Social History Tobacco Use Types Packs/Day Years Used Date Smoking Tobacco: Never Smokeless Tobacco: Never Alcohol Use Standard Drinks/Week Comments Not Currently 0 (1 standard drink = 0.6 oz pur e alcohol) Sex and Gender Information Value Date Recorded Sex Assigned at Not on file Legal Sex Male 11:30 PM EST Gender Identity Not on file Sexual Orientation Not on file documented as of this encounter Progress Notes * Shanice Andrade MA - 01/31/2025 1:52 PM EDT Referral pended as requested To covering * Rebeca Bass - 01/31/2025 1:37 PM EDT Referral Request: What insurance does the patient have today? bcbs Referrals cannot be processed if the insurance is not accurate. If the insurance listed above in red is NO BILLING INFORMATION FOUND FOR THIS ENCOUTNER The patients correct insurance must be obtained and registered in [facility] or their referral can not be processed. Who is calling to request this referral? Faxed - [facility] Endocrinology If the caller is not the patient, what is their name? not applicable Ask the patient WHO referred them to this specialty: Not an initial visit; it is for follow up/continuation of care. Patients PCP is Dr. Short FIRST and LAST NAME of SPECIALIST PATIENT is seeing: Maria Antonia Botello MD [phone] What specialty is this? endo DIAGNOSIS Patient is being seen for (Not a body part or a procedure): e89.0 Have you seen this SPECIALIST for this PROBLEM/DX before? If YES, when? Yes. Address of Specialist: [address] [place] [address] Phone # of Specialist: [phone] Fax #: (if applicable): [phone] Does patient have an appointment scheduled?: yes Date of appointment- (including a retro-request): 02/14/25 6 visits Is this appointment related to: Not MVA, worker compensation, or surgery related documented in this encounter Plan of Treatment Upcoming Encounters Date Type Department Care Team (Late st Contact Info) Description 03/18/2025 9:45 AM EDT Office Visit Internal Medicine - [address] [address] Kamran Cabello MD [address] [place] [address] Scheduled Referrals Name Type Priority Associated Diagnoses Orde r Schedule Ambulatory referral to Endocrinology Outpatient Referral Routine Postablative hypothyroidism 1 Occurrences starting 01/31/2025 until 01/31/2026 documented as of this encounter Visit Diagnoses Diagnosis Postablative hypothyroidism- Primary Other postablative hypothyroidism documented in this encounter Care Teams Software Application Tester Relationship Specialty Start Date End Date Kamran Cabello MD [address] [place] [address] PCP - General Internal Medicine 06/19/20 documented as of this encounter
--- OUTSIDE RECORDS SUMMARY | 2025-03-08 12:15 | XMS_ITS | Clinical Summary ---
Author Organization [facility] Address [address] [place] [address] Care Team Providers Care Attenuator Name Role Phone Kamran Cabello MD Primary Care Provider [phone] Allergies No known active allergies Medications Medication [...] age to complete this topic Care Teams Attenuator Relationship Specialty Start Date End Date Kamran Cabello MD [address] [facility] [place] [address] PCP - General Internal Medicine 02/05/24
--- OUTSIDE RECORDS SUMMARY | 2025-03-08 12:15 | XMS_ITS | Encounter Summary ---
Author Organization [facility], Address [address] [place] [address] Phone Care Team Providers Care Commutator Inspector Name Role Phone Kamran Anderson Primary Care Provider [phone] Encounter Details Date Type Department Care Team (Late st Contact Info) Description 10/30/2021 Documentation Only [facility], [address] [place] [phone] Chandrakant Darden MD [address] [place] [phone] Social History Tobacco Use Types Packs/Day Years [...] on filedocumented in this encounter Care Teams Commutator Inspector Relationship Specialty Start Date End Date Kamran Anderson [address] [place] [address] PCP - General Internal Medicine 02/07/21 documented as of this encounter
--- OUTSIDE RECORDS SUMMARY | 2025-03-08 12:15 | XMS_ITS | Clinical Summary ---
Author Organization [place] [address] [address] [facility] Address [address] [place] [address] Phone Care Team Providers Care Chief Service Observer Name Role Phone Kamran Cabello MD Primary Care Provider [phone] Allergies Active Allergy Reactions Criticality Noted Date [...] 5 Active amLODIPine (NORVASC) 10 mg tablet TAKE 1 TABLET(10 MG) BY MOUTH 1 TIME EACH DAY 30 tablet 5 Active amLODIPine (NORVASC) 10 mg tablet Take 1 tablet (10 mg total) by mouth 1 (one) time each day. 30 tablet 5 03/08/20 25 Discontinued Active Problems Problem Noted Date Diagnosed Date Hx of repair of dissecting t horacic aortic aneurysm, [place] type B 03/14/2022 Adrenal hyperplasia ([facility] V24) 10/31/2021 Aortic dissection ([facility] V24, [facility] V28) 08/2021 Overview (09/15/2023): Had acute type B aortic dissection on 07/23/2021 and underwent emergent type B dissection repair with TEVAR (07/2021) by Dr. Padilla. 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 He will avoid NSAIDs. Hypertension 01/31/2017 Assessment & Plan (06/18/2024 10:30 AM EST): Patient will follow a low sodium diet. Continue regimen of amlodipine, carvedilol. Orders: Lipid panel with reflex to direct LDL; Future Postablative hypothyroidism 01/31/2017 Overview (09/15/2023): Followed by Dr. Botello (Rad Iodine ~1999) at [facility] Assessment & Plan (06/18/2024 10:30 AM EST): Continue current levothyroxine. Followed by endocrinology. Encounters Date Type Department Care Team Description 02/09/2025 Telephone Internal Medicine - [facility] [address] [place], [place] [address] [address] Kamran Cabello MD 01/31/2025 Telephone Internal Medicine - [facility] [address] [place], [place] [address] [address] Kamran Cabello MD 12/23/2024 [facility] [address] [place], [place] [address] [address] Kamran Cabello MD from Last 3 Months Surgical History Surgery Date Site/Laterality Comments OTHER SURGICAL HISTORY PROCEDURE: DENIES PREVIOUS SURGERY AAA REPAIR PROCEDURE:ABDOMINAL AORTIC ANEURYSM REPAIR Medical History Medical History Date Comments Other postablative hypothyroidism 01/31/2017 DX:Other postablative hypothyroidism Hypertension 01/31/2017 DX:Hypertension CKD (chronic kidney disease) stage 3, GFR 30-59 ml/min ([facility]/HCC V24, [facility] V28) 05/12/2018 DX:CKD (chronic kidney disea se) stage 3, GFR 30-59 ml/min ([facility]) Hyperaldosteronism ([facility]/HCC V24) 09/05/2021 DX:Hyperaldosteronism (HCC) Aortic dissection ([facility] V 24, [facility]/HCC V28) 09/05/2021 DX:Aortic dissection ([facility]) CVA (cerebral vascular accid ent) (CMS/HCC V24, CMS/HCC V28) 09/05/2021 DX:CVA (cerebral vascular a ccident) ([facility]) Expressive aphasia 09/05/2021 DX:Expressive aphasia Anemia 09/05/2021 DX:Anemia; COMME NT: Acute blood loss anemia in the setting of aortic dissection repair. Stroke (CMS/HCC V24, CMS/HCC V28) DX:Stroke (HCC) Hypertension DX:Hypertension Family History [...] AM EDT Office Visit Internal Medicine - [address] [address] Kamran Cabello MD [address] [place] [address] Health Maintenance Due Date Last Done Comments [...] Procedure Name Priority Date/Time Associated Diagnosis Comments EXTERNAL CLINICAL LAB 02/14/2025 LIPID PANEL WITH REFLEX TO DIRECT LDL Routine 07/09/2024 10:12 AM EST Hypertension, unspecified type POC OCCULT BLOOD STOOL Routine 06/22/2024 9:45 AM EST Encounter for screening fecal occult blood testing HM HEPATITIS C SCREENING Routine 12/19/2020 COLONOSCOPY Routine 12/07/2015 8:44 AM EDT from Last 3 Months or Most Recently Relevant to Health Maintenance Results * External clinical lab (02/14/2025) us Provider [facility] LAB BLOOD ORDERABLES Fin al Result * Lipid panel with reflex to direct LDL (07/09/2024 10:12 AM EST) Cholesterol 155 0 - 200 mg/dL LAB CHEMISTRY METHOD 07/09/2024 1:16 PM EST [facility] Triglycerides 62 0 - 150 mg/dL LAB CHEMISTRY METHOD 07/09/2024 1:16 PM EST [facility] HDL 90 >=40 mg/dL LAB CHEMISTRY METHOD 07/09/2024 1:16 PM EST [facility] LDL Calculated 53 0 - 100 mg/dL LAB CHEMISTRY METHOD 07/09/2024 1:16 PM EST [facility] VLDL Cholesterol Itz 12.4 mg/dL LAB CHEMISTRY METHOD 07/09/2024 1:16 PM EST [facility] Non HDL Chol. (LDL+VLDL) 65 <145 mg/dL LAB CHEMISTRY METHOD 07/09/2024 1:16 PM [facility] Chol/HDL Ratio 1.7 0.0 - 4.4 LAB CHEMISTRY METHOD 07/09/2024 1:16 PM [facility] Blood Venous blood specimen / Unknown Venipuncture / Unknown 07/09/2024 10:12 AM EST 07/09/2024 10:12 AM EST Kamran Cabello MD LAB BLOOD ORDERABLES Anastasia l Result [facility] [address] [place] [address], * POC Fecal Immunochemical Testing (FIT) Screening or Diagnostic (06/22/2024 9:45 AM EST) Fecal Occult Blood POC Negative Negative Stool Rectum structure / Unknown 06/22/2024 9:45 AM EST Kamran Cabello MD POINT OF CARE TEST ENTER/ EDIT ORDERABLES Final Result * Hm Hepatitis C Screening (12/19/2020) HM Hepatitis C Screening negative us Historical Provider HEALTH MAINTENANCE Final Result * COLONOSCOPY (12/07/2015 8:44 AM EDT) Anatomical Region Laterality Modality Endoscopy Historical Provider GI~PROCEDURE ORDERABLES F inal Result from Last 3 Months or Most Recently Relevant to Health Maintenance Insurance [facility] Advance Directives Documents on File Type Date Recorded Patient Practice Manager Expl anation Health Care Decision (hx) 08/09/2021 AD HERNANDEZ DIRECTIVE Health Care Decision (hx) 08/09/2021 AD HERNANDEZ DIRECTIVE Care Teams Chief Service Observer Relationship Specialty Start Date End Date Kamran Cabello MD [address] [place] [address] PCP - General Internal Medicine 06/19/20
--- OUTSIDE RECORDS SUMMARY | 2025-03-08 12:16 | XMS_ITS | Clinical Summary ---
Author Organization [facility] Address [address] [facility] [address] [place] [address] Phone Care Team Providers Care Rn Pediatric Name Role Phone Kamran Anderson Primary Care Provider [phone] Allergies Active Allergy Reactions Criticality Noted Date [...] time each day 90 tablet 3 4 Active Active Problems [...] Due Date Last Done Comments Hepatitis B Vaccine (1 of 3 - 19+ 3-dose series) 06/12 Pneumococcal Vaccine: 50+ Years (1 of 2 - PCV) 984 Colorectal Cancer Screening: Annual FOBT 2014 Colorectal Cancer Screening: Colonoscopy 2014 Colorectal Cancer Screening: Sigmoidoscopy 2014 Influenza Vaccine (#1) 2025 Insurance [facility] Care Teams Rn Pediatric Relationship Specialty Start Date End Date Kamran Anderson [address] [place] [address] PCP - General Internal Medicine 02/07/21
--- OUTSIDE RECORDS SUMMARY | 2025-03-08 12:16 | XMS_ITS | Clinical Summary ---
Author Organization [facility] Address [address] [address] Phone Care Team Providers Care Balance Staff Inspector Name Role Phone Kamran Cabello MD Primary Care Provider [phone] Kam Douglass MD Unavailable Allergies Active Allergy Reactions Criticality Noted Date Comments Amlodipine-Benazepril Other (See Comments) 12/19/2020 Ferumoxytol High 12/14/2021 Severe hypotension and chest pain Medications amLODIPine (NORVASC) 10 MG tablet Take 1 tablet by mouth every morning. 3 Active carvedilol (COREG) 25 MG tablet Take 1.5 tablets by mouth 2 (two) times a day. 3 Active aspirin 81 MG EC tablet Take 1 tablet by mouth every morning. 3 Active atorvastatin (LIPITOR) 40 MG tablet Take 1 tablet by mouth every morning. 3 Active levothyroxine (LEVOXYL) 100 MCG tabletIndications: Postablative hypothyroidism Take 1 tablet (100 mcg total) by mouth every morning. 30 tablet 2 5 Active ferrous sulfate 325 mg (65 mg red devil iron) EC tablet Take 325 mg by mouth daily as needed. 2 02/15/20 25 Discontin ued(No longer taking) ascorbic acid, vitamin C, (VITAMIN C) 250 MG tablet Take 1 tablet by mouth every morning. 4 02/15/20 25 Discontin ued(No longer taking) LEVOXYL 137 mcg tabletIndications: Postablative hypothyroidism Take 1 tablet (137 mcg total) by mouth every morning. 90 tablet 3 08/02/18/20 25 Discontin ued(Dose adjustmen t) Active Problems Problem Noted Date Diagnosed Date Anemia CKD (chronic kidney disease), stage IV Hyperaldosteronism Overview (02/10/2023): Bilateral gland hyperplasia, follows w/ renal Hyperlipidemia Hyperparathyroidism due to renal insufficiency Hypertensive renal disease Hypokalemia Hypothyroid Overview (02/10/2023): Hx JACQUES Assessment & Plan (02/14/2025 10:51 AM EDT): Reports good consistency taking rx appropriately. He has gained some weight. Will check labs & adjust rx as appropriate. To call/message via portal if hasn't heard from me with results within 1-2 weeks. If levels normal, will repeat labs yearly, sooner prn symptoms of thyroid dysfunction or > 10-15# weight change, or as otherwise clinically indicated. Assessment & Plan (02/16/2024 11:16 AM EDT): [...] clinically indicated. Secondary hypertension Assessment & Plan (02/14/2025 10:51 AM EDT): Following w/ renal. BP looks good today. Assessment & Plan (02/16/2024 11:16 AM EDT): Following w/ renal. Recent medication adjustment. BP looks good today. PCP ?d need for additional evaluation/imaging. I would assume does not need further testing, but can double check w/ renal as well. Aortic dissection Overview (02/10/2023): s/p TEVAR Encounters Date Type Department Care Team Description 02/17/2025 Orders Only [facility] [address] [place] [address] Maria Antonia Botello MD Postablative hypothyroidism (Primary Dx) 02/17/2025 Telephone [facility] [address] [place] [address] Maria Antonia Botello MD Patient Returned Call; Labs 02/14/2025 11:06 AM EDT - 02/14/2025 11:59 PM EDT Hospital Encounter [facility] [address] [place] [address] Maria Antonia Botello MD Discharge Disposition: Home or Self Care 02/14/2025 10:20 AM EDT Office Visit [facility] [address] [place] [address] Maria Antonia Botello MD Secondary hypertension (Primary Dx); Postablative hypothyroidism 02/14/2025 Orders Only [facility] [address] [place] [address] Maria Antonia Botello MD Postablative hypothyroidism (Primary Dx) from Last 3 Months Social History Tobacco Use Types Packs/Day Years [...] Sign Reading Time Taken Comments Blood Pressure 120/70 02/14/2025 10:32 AM EDT Pulse 85 02/14/2025 10:32 AM EDT Temperature 36.7 C (98 F) 02/16/2024 10:49 AM EDT Respiratory Rate 17 02/16/2024 10:49 AM EDT Oxygen Saturation 97% 02/14/2025 10:32 AM EDT Inhaled Oxygen Concentration - - Weight 82.1 kg (181 lb) 02/14/2025 10:32 AM EDT Height 171.5 cm (5' 7.52 ) 02/14/2025 10:32 AM E DT Body Mass Index 27.91 02/14/2025 10:32 AM EDT Plan of Treatment Upcoming Encounters Date Type Department Care Team (Late st Contact Info) Description 02/14/2026 10:00 AM EDT Office Visit [facility] Endocrinology [address] [phone] Maria Antonia Botello MD [address] [place] [phone] [email or web address] Health Maintenance Due Date Last Done Comments Adult Td,Tdap Booster 1965 DEPRESSION SCREENING 1977 HIV ONE-TIME SCREENING (18-65 YEARS) 1983 SCREENING FOR DIABETES 2000 COLOGUARD 2010 COLONOSCOPY 2010 FOBT 2010 SIGMOIDOSCOPY 2010 VIRTUAL COLONOSCOPY 2010 PNEUMOCOCCAL VACCINES (50+ years) (1 of 1 - PCV) 2015 ZOSTER VACCINES (1 of 2) 2015 COVID-19 VACCINE ( - season) 2024 COLORECTAL CANCER SCREENING 06/22/2025 FIT TEST 06/22/2025 06/22/2024 BLOOD PRESSURE 08/17/2025 02/14/2025 TSH LEVEL 02/14/2026 02/14/2025, 02/04, 02/12/2023, Additional history exists LIPID PANEL 07/09/2029 07/09/2024, 01/08/2023 HEPATITIS C SCREENING Completed 12/19/2020 SMOKING STATUS SCREENING (Once After 26 Yrs) Completed 02/16/2024 HEPATITIS A [...] Procedure Name Priority Date/Time Associated Diagnosis Comments FREE T4 Routine 02/14/2025 11:06 AM EDT TSH WITH REFLEX Routine 02/14/2025 11:06 AM EDT Postablative hypothyroidism OUTSIDE HEPATITIS C VIRUS SCREENING Routine 12/19/2020 from Last 3 Months or Most Recently Relevant to Health Maintenance Results * (ABNORMAL) TSH with reflex (02/14/2025 11:06 AM EDT) TSH 10.20(H) 0.27 - 4.20 uIU/mL [facility] Blood 02/14/2025 11:0 6 AM EDT 02/14/2025 11:11 AM EDT us Maria Antonia Botello MD LAB BLOOD ORDERABLES F inal Result [address] [address] * Free T4 (02/14/2025 11:06 AM EDT) FREE T4 1.1 0.9 - 1.7 ng/dL [facility] 02/14/2025 11:0 6 AM EDT 02/14/2025 11:11 AM EDT Maria Antonia Botello MD LAB BLOOD ORDERABLES F inal Result [facility] [address] [place] [address] * Outside Hepatitis C Virus Screening (12/19/2020) [facility] Signature Hepatitis C Screening - External Neg Historical Provider LAB BLOOD ORDERABLES Anastasia l Result from Last 3 Months or Most Recently Relevant to Health Maintenance [facility] [place] [address] [place] [address] HMO POS [facility] [address] [place] [address] HMO POS Care Teams Balance Staff Inspector Relationship Specialty Start Date End Date Kamran Cabello MD [address] [place] [phone] PCP - General Internal Medicine 02/10/23 Kam Douglass MD [address] [place] [address] [address] [place] [address] Nephrology 02/14/25 Additional Source Comments The information contained in this document represents components of the legal health record. It is not the complete legal health record.[facility]
== END 2025-03-08 11:15 | disposition home or self-care (01) ==
LOC: HO.HKAS 10:47
PROVIDERS: PCP Internal Medicine; Visit Provider Internal Medicine Nephrology
DX: I12.9 Hypertensive chronic kidney disease with stage 1 through stage 4 chronic kidney disease, or unspecified chronic kidney disease (principal); N18.4 Chronic kidney disease, stage 4 (severe); R80.8 Other proteinuria; N28.1 Cyst of kidney, acquired; N25.81 Secondary hyperparathyroidism of renal origin; E55.9 Vitamin D deficiency, unspecified
CPT/HCPCS: 99214

== ENCOUNTER 2025-06-10 11:12 | Outpatient (REF) | payer BC, SELFPAY ==
[2025-06-10 20:41] LABS: Anion Gap 18 (12-20); Blood Urea Nitrogen 59 mg/dL (9-16); Carbon Dioxide 23 mmol/L (22-29); Chloride 105 mmol/L (96-108); Estimated Glomerular Filt Rate 8; Potassium 4.4 mmol/L (3.3-5.1); Sodium 142 mmol/L (135-145)
== END 2025-06-10 11:13 | disposition home or self-care (01) ==
LOC: HO.HKASLDS 11:12
PROVIDERS: Visit Provider Internal Medicine Nephrology
DX: I12.9 Hypertensive chronic kidney disease with stage 1 through stage 4 chronic kidney disease, or unspecified chronic kidney disease (principal); N18.4 Chronic kidney disease, stage 4 (severe); N28.1 Cyst of kidney, acquired; N25.81 Secondary hyperparathyroidism of renal origin; E55.9 Vitamin D deficiency, unspecified; R80.8 Other proteinuria
CPT/HCPCS: 36415; 80051; 82565; 84520

== ENCOUNTER 2025-06-14 10:05 | Outpatient (AMB) | payer BC, SELFPAY ==
--- NOTE | 2025-06-14 10:09 | HO.NEPHOV ---
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 He has history of aortic dissection needing EVAR( July 2022)( Dr Carr). He also had stroke. He has longstanding hypertension and is known to have hypertensive cardiomyopathy. He has not been on any NANETTE inhibitor or ARB for unknown reasons. He had a CT angiogram which also picked up 3.7 cm low-density lesion in the lower pole of left kidney. He has seen urologist. He is known to have proteinuria over a gram but never had a renal biopsy .His blood pressure has been labile. He denies taking any drugs, excessive nonsteroidal anti-inflammatories or [id number] medications. He maintains good hydration. He does not have any chest pain, shortness of breath, proximal nocturnal dyspnea, orthopnea, worsening pedal edema, hematuria or orthostatic symptoms. His last serum creatinine is worse. 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 Anemia Expressive aphasia CVA (cerebral vascular accident) Aortic dissection Hyperaldosteronism Adrenal hyperplasia Surgical History Hx of repair of dissecting thoracic aortic aneurysm, [place] type B Family History Mother Type 2 diabetes mellitus Hypertension Social History Alcohol intake: never Patient Tobacco Use Status: Never used Tobacco Review of Systems Const All systems reviewed & are unremarkable except as noted in HPI and below Physical Exam Const General: comfortable and no acute distress Orientation/consciousness: patient oriented x3 HEENT Head: Yes normocephalic Mouth: Normal oral and palatal mucosa present Eyes EOM: EOMs intact bilaterally Neck Neck: Yes supple Resp Auscultation: clear to auscultation bilaterally Cardio Jugular venous distension: no JVD Rate: regular rate GI Palpation (GI): Soft to palpation Auscultation: normal bowel sounds General: Yes no CVA tenderness Back/Spine/Pelvis Back: no CVA tenderness Skin General skin exam: no rashes or lesions noted Neuro General: patient oriented x3 and moves all extremities Extrem General: Yes no pedal edema Results Reviewed Nephrology Results: Sodium, (135-145) 142 mmol/L 06/10/25 Potassium, (3.3-5.1) 4.4 mmol/L 06/10/25 Chloride, (96-108) 105 mmol/L 06/10/25 Carbon Dioxide, (22-29) 23 mmol/L 06/10/25 BUN, (9-16) 59 mg/dL H 06/10/25 Creatinine, (0.5-1.4) 7.12 mg/dL H* 06/10/25 Calcium, (8.4-10.2) 9.1 mg/dL 12/14/24 Phosphorus, (2.7-4.5) 3.6 mg/dL 12/14/24 Assessment & Plan Assessment & Plan (1) Hypertension: Code(s): I10 - Essential (primary) hypertension Category: Medical Qualifiers: Hypertension type: renovascular hypertension Qualified Code(s): I15.0 - Renovascular hypertension (2) Renovascular hypertension: Code(s): I15.0 - Renovascular hypertension Category: Medical (3) Secondary hyperparathyroidism (of renal origin): Code(s): N25.81 - Secondary hyperparathyroidism of renal origin Category: Medical (4) Vitamin D deficiency: Code(s): E55.9 - Vitamin D deficiency, unspecified Category: Medical (5) CKD stage 4 secondary to hypertension: Code(s): I12.9 - Hypertensive chronic kidney disease with stage 1 through stage 4 chronic kidney disease, or unspecified chronic kidney disease; N18.4 - Chronic kidney disease, stage 4 (severe) Category: Medical (6) MELISA (acute kidney injury): Code(s): N17.9 - Acute kidney failure, unspecified Category: Medical (7) Renal cyst: Code(s): N28.1 - Cyst of kidney, acquired Category: Medical (8) Proteinuria: Code(s): R80.9 - Proteinuria, unspecified Category: Medical Qualifiers: Proteinuria type: other Qualified Code(s): R80.8 - Other proteinuria Plan Amrit has CKD likely from vascular disease. He had aortic dissection as well as stroke. His blood pressure is labile on current medications. He is known to have proteinuria over a gram, now with MELISA on CKD. ? Progression of renal disease vs iatrogenic cholesterol embolism. He is on Vitamin D 1000 Units a day. I encouraged him to avoid nonsteroidal anti-inflammatories and maintain good hydration.I started him on hydralazine 25 mg PO bid. He should take Amlodipine in the middle of the day but in the morning on the day of biopsy. I orderd F/U labs and renal biopsy. Answered all questions. Follow-up appointment given Orders: Orders Lactate Dehydrogenase 1 Week I12.9 - Hypertensive chronic kidney disease with stage 1 through stage 4 chronic kidney disease, or unspecified chronic kidney disease, N17.9 - Acute kidney failure, unspecified, N18.4 - Chronic kidney disease, stage 4 (severe) Creatinine 1 Week I12.9 - Hypertensive chronic kidney disease with stage 1 through stage 4 chronic kidney disease, or unspecified chronic kidney disease, N17.9 - Acute kidney failure, unspecified, N18.4 - Chronic kidney disease, stage 4 (severe) Complement C3 1 Week I12.9 - Hypertensive chronic kidney disease with stage 1 through stage 4 chronic kidney disease, or unspecified chronic kidney disease, N17.9 - Acute kidney failure, unspecified, N18.4 - Chronic kidney disease, stage 4 (severe) Complement C4 1 Week I12.9 - Hypertensive chronic kidney disease with stage 1 through stage 4 chronic kidney disease, or unspecified chronic kidney disease, N17.9 - Acute kidney failure, unspecified, N18.4 - Chronic kidney disease, stage 4 (severe) Parathyroid Hormone Intact 1 Week I12.9 - Hypertensive chronic kidney disease with stage 1 through stage 4 chronic kidney disease, or unspecified chronic kidney disease, N17.9 - Acute kidney failure, unspecified, N18.4 - Chronic kidney disease, stage 4 (severe) CT biopsy renal LT Today I12.9 - Hypertensive chronic kidney disease with stage 1 through stage 4 chronic kidney disease, or unspecified chronic kidney disease, N17.9 - Acute kidney failure, unspecified, N18.4 - Chronic kidney disease, stage 4 (severe) Complete Blood Count Auto Diff 1 Week I12.9 - Hypertensive chronic kidney disease with stage 1 through stage 4 chronic kidney disease, or unspecified chronic kidney disease, N17.9 - Acute kidney failure, unspecified, N18.4 - Chronic kidney disease, stage 4 (severe) Electrolytes 1 Week I12.9 - Hypertensive chronic kidney disease with stage 1 through stage 4 chronic kidney disease, or unspecified chronic kidney disease, N17.9 - Acute kidney failure, unspecified, N18.4 - Chronic kidney disease, stage 4 (severe) Blood Urea Nitrogen 1 Week I12.9 - Hypertensive chronic kidney disease with stage 1 through stage 4 chronic kidney disease, or unspecified chronic kidney disease, N17.9 - Acute kidney failure, unspecified, N18.4 - Chronic kidney disease, stage 4 (severe) Calcium 1 Week I12.9 - Hypertensive chronic kidney disease with stage 1 through stage 4 chronic kidney disease, or unspecified chronic kidney disease, N17.9 - Acute kidney failure, unspecified, N18.4 - Chronic kidney disease, stage 4 (severe) Immunofixation Pnl, Serum 1 Week I12.9 - Hypertensive chronic kidney disease with stage 1 through stage 4 chronic kidney disease, or unspecified chronic kidney disease, N17.9 - Acute kidney failure, unspecified, N18.4 - Chronic kidney disease, stage 4 (severe) Prothrombin Time INR 1 Week I12.9 - Hypertensive chronic kidney disease with stage 1 through stage 4 chronic kidney disease, or unspecified chronic kidney disease, N17.9 - Acute kidney failure, unspecified, N18.4 - Chronic kidney disease, stage 4 (severe) Phosphorus 1 Week I12.9 - Hypertensive chronic kidney disease with stage 1 through stage 4 chronic kidney disease, or unspecified chronic kidney disease, N17.9 - Acute kidney failure, unspecified, N18.4 - Chronic kidney disease, stage 4 (severe) Vitamin D 25-OH Total 1 Week I12.9 - Hypertensive chronic kidney disease with stage 1 through stage 4 chronic kidney disease, or unspecified chronic kidney disease, N17.9 - Acute kidney failure, unspecified, N18.4 - Chronic kidney disease, stage 4 (severe) Medications: New hydralazine 25 mg PO BID 180 tabs 3RF 90 days Coding Level of Care Code Est Pt Level 4 (08572) Diagnoses Renovascular hypertension I15.0 Hypertension type: renovascular hypertension Renovascular hypertension I15.0 Secondary hyperparathyroidism (of renal origin) N25.81 Vitamin D deficiency E55.9 CKD stage 4 secondary to hypertension I12.9; N18.4 MELISA (acute kidney injury) N17.9 Renal cyst N28.1 Other proteinuria R80.8 Proteinuria type: other
[2025-06-14 10:10] VITALS: BP 170/114; PULSE 81; O2SAT 98; BMI 28.3
== END 2025-06-14 10:38 | disposition home or self-care (01) ==
LOC: HO.HKAS 10:06
PROVIDERS: PCP Internal Medicine; Visit Provider Internal Medicine Nephrology
DX: I15.0 Renovascular hypertension (principal); N25.81 Secondary hyperparathyroidism of renal origin; E55.9 Vitamin D deficiency, unspecified; I12.9 Hypertensive chronic kidney disease with stage 1 through stage 4 chronic kidney disease, or unspecified chronic kidney disease; N18.4 Chronic kidney disease, stage 4 (severe); N17.9 Acute kidney failure, unspecified; N28.1 Cyst of kidney, acquired; R80.8 Other proteinuria
CPT/HCPCS: 99214